=== PATIENT | female | born 1980 | race Asian ===

== ENCOUNTER 2019-06-06 10:44 | Emergency (ER) | payer BC, OTHER ==
[~2019-06-06] VITALS: Ht 154.9 cm; Wt 56.7 kg
[2019-06-06] MEDS ORDERED: DIPHENOXYLATE HCL/ATROP SULF TABLET PO ONE (11:00)
[2019-06-06 11:04] LABS: *BILIRUBIN,URIN NEGATIVE (NEGATIVE); *BLOOD, URINE 2+ (NEGATIVE); *CLARITY,URINE SLIGHTLY CLOUDY (CLEAR); *COLOR,URINE YELLOW (YELLOW); *KETONES,URINE NEGATIVE (NEGATIVE); *UROBILINOGEN,URINE 0.2 E.U./dl (NORMAL); LEUKOCYTE ESTERASE ,URINE NEGATIVE (NEGATIVE); NITRITE, URINE NEGATIVE (NEGATIVE); UGLUCOSE NEGATIVE (NEGATIVE)
[2019-06-06] MEDS ORDERED: DIPHENOXYLATE HCL/ATROP SULF TABLET ONE (11:06)
[2019-06-06 11:08] LABS: *URINE HCG, QUAL NEGATIVE (NEGATIVE)
[2019-06-06 11:16] LABS: BASOPHILS # (AUTO) 0.1 K/uL (0.0-8.0); BASOPHILS % (AUTO) 0.7 % (0.0-2.0); EOSINOPHILS # (AUTO) 0.2 K/uL (0.0-0.7); EOSINOPHILS % (AUTO) 2.7 % (0.0-7.0); HEMATOCRIT 42.6 % (31.2-41.9); HEMOGLOBIN 14.1 g/dL (10.9-14.3); LYMPHOCYTES # (AUTO) 1.7 K/uL (20.0-40.0); LYMPHOCYTES % (AUTO) 21.2 % (20.5-51.5); MEAN CORPUSCULAR HGB CONC 33 g/dL (32.3-35.6); MEAN CORPUSCULAR VOLUME 93.3 fL (75.5-95.3); MONOCYTES # (AUTO) 1.2 K/uL (2.0-10.0); MONOCYTES % (AUTO) 14.3 % (0.0-11.0); NEUTROPHILS % (AUTO) 61.1 % (38.5-71.5); PLATELET COUNT (AUTO) 307 K/uL (179-408); RED BLOOD CELL COUNT(AUTO) 4.56 MIL/uL (3.63-4.92); WHITE BLOOD COUNT (AUTO) 8.1 K/uL (3.8-11.8)
--- NOTE | 2019-06-06 11:17 | NUR ---
PO fluids provided. Patient prefers orange juice.
[2019-06-06 11:21] LABS: RBC,URINE 0-3 /HPF (0-3); WBC,URINE 0-3 /HPF (0-3)
[2019-06-06 11:22] LABS: BACTERIA,URINE FEW /HPF (NONE SEEN); MUCUS,URINE FEW /LPF (0-FEW); SQUAMOUS EPITHELIAL CELL,UR FEW /HPF (NONE SEEN)
[2019-06-06 11:25] LABS: CREATININE 0.7 mg/dL (0.6-1.3); POTASSIUM 3.4 mmol/L (3.5-5.1)
--- NOTE | 2019-06-06 12:03 | NUR ---
Patient discharged to home in stable conditon & brisk steady gait. Written and verbal after care instructions given to patient with LOMOTIL prescription & "Excuse from Work form." Patient verbalizes understanding of instructions.
== END 2019-06-06 12:07 | disposition home or self-care (01) ==
LOC: ER 10:44
DX: R19.7 Diarrhea, unspecified (principal); R10.9 Unspecified abdominal pain
CPT/HCPCS: 36415; 84703; 85025; A4663

== ENCOUNTER 2019-08-12 19:32 | Emergency (ER) | payer BC, OTHER ==
[~2019-08-12] VITALS: Ht 154.9 cm; Wt 56.7 kg
[2019-08-12] MEDS ORDERED: DM/P295L17 PO (19:40)
[2019-08-12] MEDS ORDERED: AZITHROMYCIN 250 MG TABLET ONE (20:06)
--- NOTE | 2019-08-12 20:13 | NUR ---
Patient discharged to home in stable conditon. Written and verbal after care instructions given. Patient verbalizes understanding of instructions. Walked out of Er with no distress noted.
[2019-08-12] MEDS ORDERED: AZITHROMYCIN 250 MG TABLET PO ONE (20:15)
== END 2019-08-12 20:14 | disposition home or self-care (01) ==
LOC: ER 19:33
DX: J06.9 Acute upper respiratory infection, unspecified (principal); Z79.899 Other long term (current) drug therapy
CPT/HCPCS: A4663; Q0144

== ENCOUNTER 2019-12-29 09:40 | Emergency (ER) | payer BC, OTHER ==
[~2019-12-29] VITALS: Ht 154.9 cm; Wt 60.8 kg
[~2019-12-29 09:40] MED LIST: DM/P295L17 PO
--- NOTE | 2019-12-29 09:52 | NUR ---
ERMD AT BEDSIDE FOR HX AND PHYSICAL
[2019-12-29 10:01] VITALS: BP 129/76
--- NOTE | 2019-12-29 10:01 | NUR ---
PT WAS D/C'd TO HOME. D/C INSTRUCTIONS GIVEN TO THE PT BY DR LOCK.
== END 2019-12-29 10:06 | disposition home or self-care (01) ==
LOC: ER 09:40
DX: Z03.818 Encounter for observation for suspected exposure to other biological agents ruled out (principal)
CPT/HCPCS: A4663

== ENCOUNTER 2020-08-08 15:29 | Emergency (ER) | payer BC, OTHER ==
[~2020-08-08] VITALS: Ht 154.9 cm; Wt 60.8 kg
== END 2020-08-08 16:11 | disposition left against medical advice (07) ==
LOC: ER 15:29
DX: Z75.3 Unavailability and inaccessibility of health-care facilities (principal)

== ENCOUNTER 2020-08-30 09:35 | Emergency (ER) | payer BC, OTHER ==
[~2020-08-30] VITALS: Ht 154.9 cm; Wt 58.1 kg
[2020-08-30 10:35] VITALS: BP 138/74
== END 2020-08-30 10:37 | disposition home or self-care (01) ==
LOC: ER 09:35
DX: U07.1 COVID-19 (principal); M54.5 Low back pain
CPT/HCPCS: A4663

== ENCOUNTER 2020-11-29 09:46 | Outpatient (CLI) | payer BC, OTHER ==
[2020-11-29 17:17] LABS: BASOPHILS # (AUTO) 0.1 K/uL (0.0-8.0); EOSINOPHILS # (AUTO) 0.1 K/uL (0.0-0.7); EOSINOPHILS % (AUTO) 0.9 % (0.0-7.0); HEMATOCRIT 36.4 % (31.2-41.9); HEMOGLOBIN 12.2 g/dL (10.9-14.3); LYMPHOCYTES # (AUTO) 2.4 K/uL (20.0-40.0); LYMPHOCYTES % (AUTO) 34.2 % (20.5-51.5); MEAN CORPUSCULAR HEMOGLOBIN 30.9 uug (24.7-32.8); MEAN CORPUSCULAR HGB CONC 34 g/dL (32.3-35.6); MEAN CORPUSCULAR VOLUME 91.8 fL (75.5-95.3); MONOCYTES # (AUTO) 0.4 K/uL (2.0-10.0); NEUTROPHILS # (AUTO) 4.1 K/uL (1.8-8.9); NEUTROPHILS % (AUTO) 57.9 % (38.5-71.5); PLATELET COUNT (AUTO) 363 K/uL (179-408); RED BLOOD CELL COUNT(AUTO) 3.97 MIL/uL (3.63-4.92); WHITE BLOOD COUNT (AUTO) 7.1 K/uL (3.8-11.8)
[2020-11-29 17:37] LABS: THYROID STIMULATING HORMONE 1.29 mIU/mL (0.358-3.740)
[2020-11-29 17:56] LABS: BILIRUBIN,TOTAL 0.5 mg/dL (0.2-1.0); CREATININE 0.6 mg/dL (0.6-1.3); POTASSIUM 3.4 mmol/L (3.5-5.1); TOTAL PROTEIN, SERUM 7.6 g/dL (6.4-8.2)
== END 2020-11-29 23:59 | disposition home or self-care (01) ==
LOC: LAB 09:46
PROVIDERS: ATTEND Family Medicine
DX: E55.9 Vitamin D deficiency, unspecified (principal); R03.0 Elevated blood-pressure reading, without diagnosis of hypertension; R14.0 Abdominal distension (gaseous); Z00.01 Encounter for general adult medical examination with abnormal findings
CPT/HCPCS: 82306; 82746; 84443; 85025; 86592; 86677; 87806

== ENCOUNTER 2021-07-18 23:18 | Emergency (ER) | payer BC, OTHER ==
[~2021-07-18] VITALS: Ht 154.9 cm; Wt 59.9 kg
[2021-07-19 00:21] LABS: *BILIRUBIN,URIN NEGATIVE (NEGATIVE); *CLARITY,URINE CLEAR (CLEAR); *COLOR,URINE YELLOW (YELLOW); *KETONES,URINE NEGATIVE (NEGATIVE); *UROBILINOGEN,URINE 0.2 E.U./dl (NORMAL); LEUKOCYTE ESTERASE ,URINE NEGATIVE (NEGATIVE); NITRITE, URINE NEGATIVE (NEGATIVE); UGLUCOSE NEGATIVE (NEGATIVE)
[2021-07-19 00:23] LABS: *BLOOD, URINE TRACE (NEGATIVE)
[2021-07-19 00:35] LABS: BACTERIA,URINE NONE SEEN /HPF (NONE SEEN); SQUAMOUS EPITHELIAL CELL,UR FEW /HPF (NONE SEEN)
[2021-07-19 00:36] LABS: *URINE HCG, QUAL NEGATIVE (NEGATIVE)
[2021-07-19] MEDS ORDERED: ONDA4TAB5 PO (00:51)
[2021-07-19] MEDS ORDERED: HYDR-4209 PO (00:51)
[2021-07-19 01:02] VITALS: BP 155/100
--- NOTE | 2021-07-19 01:02 | NUR ---
Patient discharged to home in stable condition. Written and verbal after care instructions given. Patient verbalizes understanding of instructions. Stressed follow up or return to ER for worsening s/s.
== END 2021-07-19 01:03 | disposition home or self-care (01) ==
LOC: ER 23:19
DX: R10.9 Unspecified abdominal pain (principal); R03.0 Elevated blood-pressure reading, without diagnosis of hypertension
CPT/HCPCS: 84703; 87086; A4663

== ENCOUNTER → 2021-07-19 | Outpatient (CLI) | payer BC, OTHER ==
[~2021-07-19] MED LIST changes: +HYDR-4209 PO; +ONDA4TAB5 PO
[2021-07-19 11:34] LABS: HEMATOCRIT 38.7 % (31.2-41.9); MEAN CORPUSCULAR HEMOGLOBIN 30.8 uug (24.7-32.8); MEAN CORPUSCULAR VOLUME 89.8 fL (75.5-95.3); PLATELET COUNT (AUTO) 376 K/uL (179-408)
[2021-07-19 11:40] LABS: BILIRUBIN,TOTAL 0.4 mg/dL (0.2-1.0); CREATININE 0.7 mg/dL (0.6-1.3); POTASSIUM 4.7 mmol/L (3.5-5.1)
[2021-07-19 12:14] LABS: *BILIRUBIN,URIN NEGATIVE (NEGATIVE); *BLOOD, URINE NEGATIVE (NEGATIVE); *CLARITY,URINE CLEAR (CLEAR); *COLOR,URINE YELLOW (YELLOW); *KETONES,URINE NEGATIVE (NEGATIVE); *UROBILINOGEN,URINE 0.2 E.U./dl (NORMAL); LEUKOCYTE ESTERASE ,URINE NEGATIVE (NEGATIVE); NITRITE, URINE NEGATIVE (NEGATIVE); PH,URINE 7.5 (5.0-8.0); UGLUCOSE NEGATIVE (NEGATIVE)
== END | disposition home or self-care (01) ==
LOC: LAB 11:00
PROVIDERS: ATTEND Family Medicine
DX: R10.9 Unspecified abdominal pain (principal)
CPT/HCPCS: 36415; 76770; 83690; 85025; 87086

== ENCOUNTER 2022-08-02 19:21 | Emergency (ER) | payer BC, OTHER ==
[~2022-08-02] VITALS: Ht 154.9 cm; Wt 61.7 kg
--- NOTE | 2022-08-02 19:50 | NUR ---
Seen and examined by Dr. Belle
--- NOTE | 2022-08-02 20:00 | NUR ---
Collected flu and pcr test. sent to lab
[2022-08-02] MEDS ORDERED: CODE473L6 PO (20:12)
[2022-08-02 20:22] VITALS: BP 122/80
== END 2022-08-02 20:23 | disposition home or self-care (01) ==
LOC: ER 19:31
DX: J20.8 Acute bronchitis due to other specified organisms (principal); Z20.822 Contact with and (suspected) exposure to COVID-19
CPT/HCPCS: 87400; A4663

== ENCOUNTER 2022-09-21 22:24 | Emergency (ER) | payer BC, OTHER ==
[~2022-09-21] VITALS: Ht 154.9 cm; Wt 59.0 kg
[~2022-09-21 22:24] MED LIST changes: +CODE473L6 PO
[2022-09-21] MEDS ORDERED: ASPIRIN 325 MG TABLET PO ONE (22:45)
[2022-09-21] MEDS ORDERED: ASPIRIN 325 MG TABLET ONE (22:53)
[2022-09-21 23:11] LABS: HEMATOCRIT 39.6 % (31.2-41.9); MEAN CORPUSCULAR HEMOGLOBIN 29.7 uug (24.7-32.8); MEAN CORPUSCULAR VOLUME 91.4 fL (75.5-95.3); PLATELET COUNT (AUTO) 417 K/uL (179-408)
[2022-09-21 23:19] LABS: CARBON DIOXIDE 28 mmol/L (21-32); CHLORIDE 103 mmol/L (98-107); CREATININE 0.6 mg/dL (0.6-1.3); GLUCOSE 101 mg/dL (74-106); POTASSIUM 3.9 mmol/L (3.5-5.1); UREA NITROGEN, BLOOD 12 mg/dL (7-18)
[2022-09-21 23:31] LABS: ALANINE AMINOTRANSFERASE 25 U/L (14-59); ALKALINE PHOSPHATASE 43 U/L (50-136); ASPARTATE AMINOTRANSFERASE 14 U/L (15-37); BILIRUBIN,DIRECT 0.1 mg/dL (0.0-0.2); BILIRUBIN,TOTAL 0.3 mg/dL (0.2-1.0)
--- NOTE | 2022-09-22 01:02 | NUR ---
Late entry: Patient arrived to room #4-a at 2300, assisted into gown and placed on monitor. Informed of plan of care, was seen by ER MD, bedside EKG was done for MD review. patient a/o x4, no s/s of any distress noted, no s/s of any edema. Will continue to monitor.
--- NOTE | 2022-09-22 02:58 | NUR ---
Patient given ACI, states understanding, remains stable for discharge home.
[2022-09-22 02:59] VITALS: BP 139/77
== END 2022-09-22 03:01 | disposition home or self-care (01) ==
LOC: ER 22:24
DX: R07.9 Chest pain, unspecified (principal); I10 Essential (primary) hypertension; Z82.49 Family history of ischemic heart disease and other diseases of the circulatory system
CPT/HCPCS: 36415; 71045; 84484; 85025; 93005; A4663

== ENCOUNTER 2022-09-27 16:52 | Outpatient (CLI) | payer BC, OTHER ==
[2022-09-27 17:59] LABS: *BILIRUBIN,URIN NEGATIVE (NEGATIVE); *CLARITY,URINE CLEAR (CLEAR); *COLOR,URINE LIGHT YELLOW (YELLOW); *KETONES,URINE NEGATIVE (NEGATIVE); *UROBILINOGEN,URINE 0.2 E.U./dl (NORMAL); LEUKOCYTE ESTERASE ,URINE NEGATIVE (NEGATIVE); NITRITE, URINE NEGATIVE (NEGATIVE); UGLUCOSE NEGATIVE (NEGATIVE)
[2022-09-27 18:00] LABS: *BLOOD, URINE TRACE (NEGATIVE)
[2022-09-27 18:17] LABS: BACTERIA,URINE NONE SEEN /HPF (NONE SEEN); RBC,URINE 0-3 /HPF (0-3); SQUAMOUS EPITHELIAL CELL,UR FEW /HPF (NONE SEEN); WBC,URINE NONE SEEN /HPF (0-3)
== END 2022-09-27 23:59 | disposition home or self-care (01) ==
LOC: RAD 16:52
PROVIDERS: ATTEND Family Medicine
DX: R51.9 Headache, unspecified (principal); R31.9 Hematuria, unspecified
CPT/HCPCS: 70450

== ENCOUNTER 2022-10-19 13:10 | Emergency (ER) | payer BC, OTHER ==
[~2022-10-19] VITALS: Ht 154.9 cm; Wt 59.0 kg
--- NOTE | 2022-10-19 13:22 | NUR ---
42 years old female presents to er c/o hypertension, no dizziness, no headache.
[2022-10-19] MEDS ORDERED: LOSA50TA39 PO (13:27)
[2022-10-19] MEDS ORDERED: LOSARTAN POTASSIUM 25 MG TABLET PO SCH (13:30)
[2022-10-19 14:23] LABS: HEMATOCRIT 38.1 % (31.2-41.9); MEAN CORPUSCULAR VOLUME 90.3 fL (75.5-95.3); PLATELET COUNT (AUTO) 402 K/uL (179-408)
[2022-10-19 14:41] LABS: CARBON DIOXIDE 30 mmol/L (21-32); CHLORIDE 102 mmol/L (98-107); CREATININE 0.5 mg/dL (0.6-1.3); GLUCOSE 99 mg/dL (74-106); UREA NITROGEN, BLOOD 10 mg/dL (7-18)
[2022-10-19 14:49] VITALS: BP 131/79
--- NOTE | 2022-10-19 14:50 | NUR ---
patient condition stable no cp, ambulatory with steady gait no dizziness d/c home after care reviewed understood.
== END 2022-10-19 14:51 | disposition home or self-care (01) ==
LOC: ER 13:10
DX: I10 Essential (primary) hypertension (principal); R07.9 Chest pain, unspecified
CPT/HCPCS: 36415; 71045; 84484; 85025; 93005; A4663

== ENCOUNTER 2023-01-10 19:11 | Inpatient (IN) | payer BC, OTHER ==
[~2023-01-10] VITALS: Ht 160 cm; Wt 62.6 kg
[~2023-01-10 19:11] MED LIST changes: +LOSA50TA39 PO
--- NOTE | 2023-01-10 19:40 | NUR ---
Received admission report from [facility] nurse.
--- NOTE | 2023-01-10 20:20 | NUR ---
Patient arrived in the unit from [facility], accompanied by 2 EMT's via gurney. Awake, alert and oriented x 4, slightly drowsy. Placed comfortably to bed with 5 people assist. at bedside. Both LE wrapped with surgical dressings dry and intact, elevated with pillows. Routine admission care done. Plan of care initiated. VS taken and recorded. Safety measures and fall prevention initiated.
[2023-01-10] MEDS ORDERED: AMLO-212 PO (21:17)
[2023-01-10] MEDS ORDERED: CHOL100062 PO (21:17)
[2023-01-10] MEDS ORDERED: ZINC220T3 PO (21:17)
[2023-01-10] MEDS ORDERED: HYDR-3980 PO (21:17)
[2023-01-10] MEDS ORDERED: BIOT1CAP3 PO (21:17)
[2023-01-10] MEDS ORDERED: ENOX40DI SQ (21:17)
[2023-01-10] MEDS ORDERED: BIOT1TAB PO (21:17)
[2023-01-10] MEDS ORDERED: NYQUIL D COLD PO SCH (21:45)
[2023-01-10] MEDS ORDERED: ONDANSETRON HCL 4 MG TABLET PO PRN (21:45)
[2023-01-10] MEDS ORDERED: [UNRECOGNIZED DRUG - OTHER] PO SCH (21:45)
[2023-01-10] MEDS: HYDROCODONE/APAP 10-325 MG TABLET PO PRN (22:40)
[2023-01-11] MEDS: HYDROCODONE/APAP 10-325 MG TABLET PO PRN (04:33)
[2023-01-11 05:12] VITALS: BP 119/79
[2023-01-11 07:58] VITALS: BP 126/93
[2023-01-11] MEDS ORDERED: NALOXONE HCL 0.4 MG/ML AMPUL IV PRN (08:45)
[2023-01-11] MEDS ORDERED: BIOTIN 1 MG PO SCH (09:00)
[2023-01-11] MEDS ORDERED: LOSARTAN POTASSIUM 50 MG TABLET PO SCH ×2 (09:00)
[2023-01-11] MEDS ORDERED: Medication Not On Formulary EA (Biotin 1 MG) PO SCH (09:00)
[2023-01-11] MEDS: ZINC SULFATE 220 MG CAPSULE PO SCH (09:02)
[2023-01-11] MEDS: AMLODIPINE 5 MG TABLET PO SCH ×2 (09:03→20:55)
[2023-01-11] MEDS: ENOXAPARIN SODIUM 40 MG/0.4 ML DISP.SYRIN SQ SCH (09:04)
[2023-01-11] MEDS: REMEDY ESSENTIAL ZINC PASTE 113 GM TOP SCH ×2 (09:04→20:23)
[2023-01-11] MEDS: OXYCODONE HCL 10 MG TAB.SR.12H PO SCH ×2 (09:08→17:37)
[2023-01-11] MEDS ORDERED: HYDROCODONE/APAP 10-325 MG TABLET PO PRN (13:30)
[2023-01-11 16:00] VITALS: BP 124/83
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
[2023-01-11 20:00] VITALS: BP 120/77
[2023-01-12] MEDS: OXYCODONE HCL 10 MG TAB.SR.12H PO SCH ×4 (00:38→21:49)
[2023-01-12 04:00] VITALS: BP 119/80
--- NOTE | 2023-01-12 07:00 | NUR ---
Patient is in bed, alert, oriented x4, no sob, respirations are even nonlabored, skin warm and dry to touch, no distress noted at this time. patient stated she has pain but can tolerate at this time. surgical dressing is intact to both legs, able to move her toes, capillary refill to toes is less than 3 second. patient refused to assess the pedal pulses. continue with plan of care.
[2023-01-12 08:06] VITALS: BP 122/86
--- NOTE | 2023-01-12 08:30 | NUR ---
all the scheduled medications are given, tolerated well.
[2023-01-12] MEDS: CHOLECALCIFEROL 1,000 UNIT TABLET PO SCH (08:33)
[2023-01-12] MEDS: ASCORBIC ACID 500 MG TABLET PO SCH (08:33)
[2023-01-12] MEDS: ZINC SULFATE 220 MG CAPSULE PO SCH (08:33)
[2023-01-12] MEDS: AMLODIPINE 5 MG TABLET PO SCH ×2 (08:33→22:42)
[2023-01-12] MEDS ORDERED: CHOLECALCIFEROL 400 UNITS TABLET PO SCH (09:00)
[2023-01-12] MEDS ORDERED: ZINC SULFATE 220 MG CAPSULE PO SCH (09:00)
[2023-01-12] MEDS: ENOXAPARIN SODIUM 40 MG/0.4 ML DISP.SYRIN SQ SCH (09:02)
[2023-01-12] MEDS: REMEDY ESSENTIAL ZINC PASTE 113 GM TOP SCH ×2 (09:02→22:42)
--- NOTE | 2023-01-12 10:15 | NUR ---
patient stated she would like to try to have BM, if not able to make BM, going to sleep. do not disturb me.
--- NOTE | 2023-01-12 11:20 | NUR ---
spoke to dr cuevas regarding oxycontin. per dr cuevas it is ok to given oxycontin with in six hours for one time so the schedule for oxycontine can be 0600, 1400, [address]. [address] cuevas it is ok to give norco in between.
--- NOTE | 2023-01-12 12:30 | NUR ---
patient is working with physical therapy, sitting at the edge of the bed, offered norco for breakthrough pain, patient refused to take it and stated she can tolerate the level of the pain at this time. no acute distress noted.
[2023-01-12] MEDS: DOCUSATE SODIUM 100 MG CAPSULE PO SCH ×2 (14:45→21:49)
[2023-01-12 16:00] VITALS: BP 117/82
[2023-01-12 21:00] VITALS: BP 127/94
--- NOTE | 2023-01-13 01:25 | NUR ---
patient changes and cleans herself, does not like to be cleansed by nurses.
[2023-01-13 04:50] VITALS: BP 113/78
[2023-01-13] MEDS: OXYCODONE HCL 10 MG TAB.SR.12H PO SCH ×3 (05:41→21:59)
--- NOTE | 2023-01-13 06:00 | NUR ---
0600 am oxycontin is administered
[2023-01-13 06:15] LABS: HEMATOCRIT 32.8 % (31.2-41.9); MEAN CORPUSCULAR HEMOGLOBIN 30.9 uug (24.7-32.8); MEAN CORPUSCULAR VOLUME 90.9 fL (75.5-95.3); PLATELET COUNT (AUTO) 646 K/uL (179-408)
[2023-01-13] MEDS: CHOLECALCIFEROL 1,000 UNIT TABLET PO SCH (07:05)
[2023-01-13] MEDS: DOCUSATE SODIUM 100 MG CAPSULE PO SCH ×2 (07:05→20:52)
[2023-01-13] MEDS: AMLODIPINE 5 MG TABLET PO SCH ×2 (07:06→20:52)
[2023-01-13] MEDS: ASCORBIC ACID 500 MG TABLET PO SCH (07:06)
[2023-01-13] MEDS: ZINC SULFATE 220 MG CAPSULE PO SCH (07:08)
[2023-01-13 07:11] VITALS: BP 130/66
--- NOTE | 2023-01-13 07:21 | NUR ---
patient requested her morning medications vitamins and amlodipine at 0700, okayed by .
[2023-01-13] MEDS: ENOXAPARIN SODIUM 40 MG/0.4 ML DISP.SYRIN SQ SCH (09:14)
[2023-01-13] MEDS: REMEDY ESSENTIAL ZINC PASTE 113 GM TOP SCH ×2 (09:15→20:55)
--- NOTE | 2023-01-13 10:30 | NUR ---
7:30, Pt received lying in bed, awake in no acute distress. She states pain is under control. Pt with Pure-Week device. Pt instructed to call if any help needed and to use call [facility]
--- NOTE | 2023-01-13 10:34 | NUR ---
9:00, Pt was lying in bed, awake, all meds given, no new requests
--- NOTE | 2023-01-13 15:30 | NUR ---
INDIVIDUALIZED PLAN OF CARE
[2023-01-13 15:52] VITALS: BP 123/80
--- NOTE | 2023-01-13 18:55 | NUR ---
18:45, Pt comfortable in bed denies pain. Family visited and were update with plan of care. Pt able to swallow without any difficult. All needs met during shift.
[2023-01-14 04:00] VITALS: BP 121/84
[2023-01-14] MEDS: OXYCODONE HCL 10 MG TAB.SR.12H PO SCH ×3 (06:00→22:01)
[2023-01-14 08:11] VITALS: BP 115/78
[2023-01-14] MEDS: ASCORBIC ACID 500 MG TABLET PO SCH (08:24)
[2023-01-14] MEDS: AMLODIPINE 5 MG TABLET PO SCH ×2 (08:24→20:49)
[2023-01-14] MEDS: DOCUSATE SODIUM 100 MG CAPSULE PO SCH ×2 (08:24→20:49)
[2023-01-14] MEDS: CHOLECALCIFEROL 1,000 UNIT TABLET PO SCH (08:24)
[2023-01-14] MEDS: ZINC SULFATE 220 MG CAPSULE PO SCH (08:25)
[2023-01-14] MEDS: REMEDY ESSENTIAL ZINC PASTE 113 GM TOP SCH ×2 (08:25→20:49)
[2023-01-14] MEDS: ENOXAPARIN SODIUM 40 MG/0.4 ML DISP.SYRIN SQ SCH (08:27)
--- NOTE | 2023-01-14 09:58 | NUR ---
0730-Rec'd patient in bed, awake, A/Ox4; verbalizes needs and follows directions, no respiratory distress/SOB, denies pain at this time, safety precaution reminders provided. RT LE with cast in place, patient able to wiggle right toes, denies any numbness/tingling sensation. LLE with brace in place, no skin impairment/circulation impairment noted. Encouraged patient to use the call light for help when needed with good understanding. Safety measures in place. 0900-Scheduled medications administered, no ASE, oral fluids taken well. Patient continues on Lovenox for prevention of blood clots/DVT, no unusual skin discoloration/bleeding noted/observed; safety precautions followed, handled gently and carefully during care. Call light within reach.
[2023-01-14 15:13] VITALS: BP 128/63
--- NOTE | 2023-01-14 18:08 | NUR ---
Per patient's request and per COUNTERINTELLIGENCE AGENT Andrés Hendricks covering for the shift, ok to DC ML to ARNEL., ML dc'd, direct pressure to puncture site applied, no s/s of bleeding, band-aid applied. Patient mike. well proc. denies pain. Per case checker, patient has an apt ortho F/U on thursday 01/18 @ 1:45pm. Patient is aware.
[2023-01-14] MEDS ORDERED: METHYL SALICYLATE/MENTHOL CREAM 28 GM TUBE TOP PRN (19:00)
[2023-01-14 20:52] VITALS: BP 121/89
[2023-01-15] MEDS: OXYCODONE HCL 10 MG TAB.SR.12H PO SCH ×3 (05:20→22:04)
[2023-01-15 05:26] VITALS: BP 112/79
--- NOTE | 2023-01-15 06:08 | NUR ---
Slept fairly. she tried to avoid asking for assistance/help. Routine pain medications with help. VS stable. Kept BLE elevated at all times.
[2023-01-15 08:00] VITALS: BP 122/73
[2023-01-15] MEDS: ASCORBIC ACID 500 MG TABLET PO SCH (08:00)
[2023-01-15] MEDS: CHOLECALCIFEROL 1,000 UNIT TABLET PO SCH (08:00)
[2023-01-15] MEDS: AMLODIPINE 5 MG TABLET PO SCH ×2 (08:00→20:53)
[2023-01-15] MEDS: REMEDY ESSENTIAL ZINC PASTE 113 GM TOP SCH ×2 (08:00→20:53)
[2023-01-15] MEDS: DOCUSATE SODIUM 100 MG CAPSULE PO SCH ×2 (08:00→20:50)
[2023-01-15] MEDS: ZINC SULFATE 220 MG CAPSULE PO SCH (08:00)
[2023-01-15] MEDS: ENOXAPARIN SODIUM 40 MG/0.4 ML DISP.SYRIN SQ SCH (08:01)
--- NOTE | 2023-01-15 10:43 | NUR ---
spoke to patient instrument technician apprentice, dr Velasco for follow up, per he is going to call us back and let us know the plan.
--- NOTE | 2023-01-15 10:46 | NUR ---
patient is alert, oriented x4, no sob, respirations are even nonlabored, skin warm and dry to touch, dressing to right lower leg is intact, patient is able to move her toes, capillary refill is less than 3 seconds. pain is well managed with scheduled pain medication, offered breakthrough medication, patient stated she is fine, does not need any breakthrough medications for pain at this time. continue on anticoagulant, no active bleeding noted. surgical dressing is intact, dry and clean.
[2023-01-15 15:13] VITALS: BP 122/83
--- NOTE | 2023-01-15 18:30 | NUR ---
patient is alert, oriented x4, encouraged to use spirometer every hour. reinforced teaching and benefits of using incentive spirometer, patient verbalized understanding of it, patient' son visited patient today. sometimes noted with sad facial expression, encouraged patient to verbalize feelings. patient stated she is fine, denied any depressed mood, denied suicidal thoughts. patient was up in wheel chair with PT, and OT, tolerated well. patient likes to be her door close all the time, and likes to change herself. does not want nurses to change her or clean her. education about good skin care. verbalized understanding of it. continue with plan of care.
[2023-01-15 20:00] VITALS: BP 128/88
[2023-01-16 05:35] VITALS: BP 108/75
[2023-01-16] MEDS: OXYCODONE HCL 10 MG TAB.SR.12H PO SCH ×3 (05:40→21:42)
[2023-01-16 07:56] VITALS: BP 128/91
[2023-01-16] MEDS: CHOLECALCIFEROL 1,000 UNIT TABLET PO SCH (08:38)
[2023-01-16] MEDS: DOCUSATE SODIUM 100 MG CAPSULE PO SCH ×2 (08:38→20:41)
[2023-01-16] MEDS: ASCORBIC ACID 500 MG TABLET PO SCH (08:39)
[2023-01-16] MEDS: ZINC SULFATE 220 MG CAPSULE PO SCH (08:39)
[2023-01-16] MEDS: AMLODIPINE 5 MG TABLET PO SCH ×2 (08:39→20:42)
[2023-01-16] MEDS: REMEDY ESSENTIAL ZINC PASTE 113 GM TOP SCH ×2 (08:41→20:42)
[2023-01-16] MEDS: ENOXAPARIN SODIUM 40 MG/0.4 ML DISP.SYRIN SQ SCH (08:41)
--- NOTE | 2023-01-16 14:39 | NUR ---
INTERDISCIPLINARY TEAM CONFERENCE
[2023-01-16 19:58] VITALS: BP 120/79
[2023-01-17] MEDS: OXYCODONE HCL 10 MG TAB.SR.12H PO SCH ×3 (05:34→21:26)
[2023-01-17 07:17] LABS: HEMATOCRIT 34.4 % (31.2-41.9); MEAN CORPUSCULAR HEMOGLOBIN 30.3 uug (24.7-32.8); PLATELET COUNT (AUTO) 677 K/uL (179-408)
[2023-01-17 07:42] LABS: THYROID STIMULATING HORMONE 1.723 mIU/mL (0.358-3.740)
[2023-01-17 08:23] LABS: ALANINE AMINOTRANSFERASE 41 U/L (14-59); ALKALINE PHOSPHATASE 230 U/L (50-136); ASPARTATE AMINOTRANSFERASE 18 U/L (15-37); BILIRUBIN,TOTAL 0.5 mg/dL (0.2-1.0); CARBON DIOXIDE 27 mmol/L (21-32); CHLORIDE 105 mmol/L (98-107); CHOLESTEROL 195 mg/dL (<200); CREATININE 0.5 mg/dL (0.6-1.3); GLUCOSE 104 mg/dL (74-106); HDL CHOLESTEROL 43 mg/dL (40-60); MAGNESIUM 2.2 mg/dL (1.8-2.4); PHOSPHOROUS 4.5 mg/dL (2.5-4.9); TOTAL PROTEIN, SERUM 6.9 g/dL (6.4-8.2); TRIGLYCERIDES 83 MG/DL (30-150); UREA NITROGEN, BLOOD 13 mg/dL (7-18)
[2023-01-17] MEDS: ENOXAPARIN SODIUM 40 MG/0.4 ML DISP.SYRIN SQ SCH (08:44)
[2023-01-17] MEDS: CHOLECALCIFEROL 1,000 UNIT TABLET PO SCH (08:44)
[2023-01-17] MEDS: ASCORBIC ACID 500 MG TABLET PO SCH (08:44)
[2023-01-17] MEDS: ZINC SULFATE 220 MG CAPSULE PO SCH (08:49)
[2023-01-17] MEDS: AMLODIPINE 5 MG TABLET PO SCH ×2 (08:49→20:33)
[2023-01-17] MEDS: REMEDY ESSENTIAL ZINC PASTE 113 GM TOP SCH ×2 (08:50→20:33)
[2023-01-17] MEDS: DOCUSATE SODIUM 100 MG CAPSULE PO SCH ×2 (08:50→20:32)
--- NOTE | 2023-01-17 19:31 | NUR ---
Patient A/Ox4, verbally communicative, follows directions. OOB during shift with rehab for PT/OT skilled services. On routine pain medication for pain management and effective. Assisted patient with ADLs through out the shift. Care provided at routine intervals and as needed. RT LE with cast in place, left LE with brace in place, no skin impairment/circulation issues noted, patient denies pain, numbness, tingling in affected extremities. Continues on Lovenox inj for DVT prevention. No unusual bleeding noted; Safety precautions observed. Routine rounds and frequent visual checks done. All needs attended well and met.
[2023-01-17 20:00] VITALS: BP 125/77
[2023-01-18 04:00] VITALS: BP 121/77
[2023-01-18] MEDS: OXYCODONE HCL 10 MG TAB.SR.12H PO SCH ×3 (05:58→22:27)
--- NOTE | 2023-01-18 06:44 | NUR ---
No significant event reported all night. All needs attended and met. Continue current rehab plan of care.
[2023-01-18 07:47] VITALS: BP 125/88
[2023-01-18] MEDS: AMLODIPINE 5 MG TABLET PO SCH ×2 (08:23→20:32)
[2023-01-18] MEDS: DOCUSATE SODIUM 100 MG CAPSULE PO SCH ×2 (08:23→20:27)
[2023-01-18] MEDS: CHOLECALCIFEROL 1,000 UNIT TABLET PO SCH (08:23)
[2023-01-18] MEDS: ASCORBIC ACID 500 MG TABLET PO SCH (08:23)
[2023-01-18] MEDS: ZINC SULFATE 220 MG CAPSULE PO SCH (08:23)
[2023-01-18] MEDS: ENOXAPARIN SODIUM 40 MG/0.4 ML DISP.SYRIN SQ SCH (08:24)
[2023-01-18] MEDS: REMEDY ESSENTIAL ZINC PASTE 113 GM TOP SCH ×2 (08:24→20:32)
--- NOTE | 2023-01-18 12:35 | NUR ---
pt went for dr appointment via ambulances in stable condition
--- NOTE | 2023-01-18 15:51 | NUR ---
pt came back via ambulances after the dr appointment ,new orders received noted and carried out
[2023-01-18 21:00] VITALS: BP 133/96
[2023-01-19] MEDS: OXYCODONE HCL 10 MG TAB.SR.12H PO SCH ×3 (05:46→21:34)
--- NOTE | 2023-01-19 06:20 | NUR ---
Uneventful night. Slept good after taking pain medication. No further complaint of pain/discomforts presented. All needs attended and met. Vs stable. Continue current rehab plan of care.
--- NOTE | 2023-01-19 07:00 | NUR ---
patient in her room, lying in bed asleep at this time with no S/S of discomforts noted,family at bed side sleeping , fall and safety precautions implemented. will continue to monitor. call light with in reach
[2023-01-19 07:12] VITALS: BP 112/72
[2023-01-19] MEDS: ASCORBIC ACID 500 MG TABLET PO SCH (08:24)
[2023-01-19] MEDS: ZINC SULFATE 220 MG CAPSULE PO SCH (08:24)
[2023-01-19] MEDS: CHOLECALCIFEROL 1,000 UNIT TABLET PO SCH (08:24)
[2023-01-19] MEDS: DOCUSATE SODIUM 100 MG CAPSULE PO SCH ×2 (08:24→20:03)
[2023-01-19] MEDS: AMLODIPINE 5 MG TABLET PO SCH ×2 (08:24→20:05)
[2023-01-19] MEDS: REMEDY ESSENTIAL ZINC PASTE 113 GM TOP SCH ×2 (08:25→20:05)
[2023-01-19] MEDS: ENOXAPARIN SODIUM 40 MG/0.4 ML DISP.SYRIN SQ SCH (08:25)
--- NOTE | 2023-01-19 09:00 | NUR ---
seen by pt ot pt stud next to the bed tolerated well
[2023-01-19 15:04] VITALS: BP 111/73
--- NOTE | 2023-01-19 15:43 | NUR ---
resting in her bed family at bed side
--- NOTE | 2023-01-19 16:06 | NUR ---
spoke to patient coin collector, dr Velasco for the orders from orthopedic from [facility] Dr Reyes, per dr reyes patient can put weight as tolerated on her left leg while wearing the boot on left foot. coin collector dr velasco agreed with plan of care.
[2023-01-19] MEDS: ATORVASTATIN 10 MG TABLET PO SCH (20:09)
[2023-01-19 20:26] VITALS: BP 142/91
[2023-01-20 05:25] VITALS: BP 112/70
[2023-01-20] MEDS: OXYCODONE HCL 10 MG TAB.SR.12H PO SCH ×3 (05:42→22:00)
--- NOTE | 2023-01-20 07:00 | NUR ---
received in her bed sleeping ,no c/o pain noted ,call light with in reach ,family in the room sleeping
[2023-01-20] MEDS: CHOLECALCIFEROL 1,000 UNIT TABLET PO SCH (08:16)
[2023-01-20] MEDS: ASCORBIC ACID 500 MG TABLET PO SCH (08:16)
[2023-01-20] MEDS: ZINC SULFATE 220 MG CAPSULE PO SCH (08:16)
[2023-01-20] MEDS: DOCUSATE SODIUM 100 MG CAPSULE PO SCH ×2 (08:16→19:57)
[2023-01-20] MEDS: ENOXAPARIN SODIUM 40 MG/0.4 ML DISP.SYRIN SQ SCH (08:17)
[2023-01-20] MEDS: AMLODIPINE 5 MG TABLET PO SCH ×2 (08:19→19:57)
[2023-01-20] MEDS: REMEDY ESSENTIAL ZINC PASTE 113 GM TOP SCH (08:19)
[2023-01-20 08:37] VITALS: BP 116/74
[2023-01-20 16:05] VITALS: BP 123/74
[2023-01-20] MEDS ORDERED: diphenhydrAMINE 25 MG CAP PO PRN (19:45)
--- NOTE | 2023-01-20 19:45 | NUR ---
Patient sitting at the edge of bed when received, depressed, crying and asking why it happened to her, she did not harm anybody, why her? She said her mom was here earlier, crying of her condition, that made her more guilty and 'I want to end this...." I told her to be always positive, she's a strong willed person, having a lot of friends that love and care for her. Will continue to monitor her. Family at bedside.
[2023-01-20] MEDS: ATORVASTATIN 10 MG TABLET PO SCH (19:55)
[2023-01-20 20:35] VITALS: BP 126/80
--- NOTE | 2023-01-20 20:55 | NUR ---
Up in a wheelchair wheeled by a family back and forth in the hallway.
[2023-01-21 04:55] VITALS: BP 114/70
[2023-01-21] MEDS: OXYCODONE HCL 10 MG TAB.SR.12H PO SCH ×3 (05:54→21:46)
--- NOTE | 2023-01-21 06:16 | NUR ---
Slept fairly, all needs attended and met. Routine pain meds given as ordered with help. All needs attended and met. Family member remain at bedside. Continue care as planned.
[2023-01-21 08:00] VITALS: BP 120/78
[2023-01-21] MEDS: DOCUSATE SODIUM 100 MG CAPSULE PO SCH ×2 (09:18→20:54)
[2023-01-21] MEDS: AMLODIPINE 5 MG TABLET PO SCH ×2 (09:19→20:54)
[2023-01-21] MEDS: ZINC SULFATE 220 MG CAPSULE PO SCH (09:19)
[2023-01-21] MEDS: ASCORBIC ACID 500 MG TABLET PO SCH (09:19)
[2023-01-21] MEDS: CHOLECALCIFEROL 1,000 UNIT TABLET PO SCH (09:19)
[2023-01-21] MEDS: ENOXAPARIN SODIUM 40 MG/0.4 ML DISP.SYRIN SQ SCH (09:20)
[2023-01-21] MEDS: HYDROXYZINE PAMOATE 25 MG CAPSULE PO PRN (12:48)
[2023-01-21 15:35] VITALS: BP 136/85
[2023-01-21 20:37] VITALS: BP 116/74
[2023-01-21] MEDS: ATORVASTATIN 10 MG TABLET PO SCH (20:54)
[2023-01-22 04:55] VITALS: BP 106/70
[2023-01-22] MEDS: OXYCODONE HCL 10 MG TAB.SR.12H PO SCH ×3 (05:56→21:01)
--- NOTE | 2023-01-22 06:31 | NUR ---
Been quiet, less conversant today. Pain lesser, tolerable per patient. No complaint of itchiness this time. Continue care as planned. Vs stable.
[2023-01-22 07:44] VITALS: BP 115/86
--- NOTE | 2023-01-22 08:00 | NUR ---
Sleeping, appears comfortable
[2023-01-22] MEDS: DOCUSATE SODIUM 100 MG CAPSULE PO SCH ×2 (09:58→20:13)
[2023-01-22] MEDS: AMLODIPINE 5 MG TABLET PO SCH ×2 (09:58→20:14)
[2023-01-22] MEDS: CHOLECALCIFEROL 1,000 UNIT TABLET PO SCH (09:59)
[2023-01-22] MEDS: ZINC SULFATE 220 MG CAPSULE PO SCH (09:59)
[2023-01-22] MEDS: ASCORBIC ACID 500 MG TABLET PO SCH (09:59)
[2023-01-22] MEDS: ENOXAPARIN SODIUM 40 MG/0.4 ML DISP.SYRIN SQ SCH (10:10)
--- NOTE | 2023-01-22 12:00 | NUR ---
Assisted out of bed with PT with FWW ambulating outside of the room Addendum: 01/22/23 at 1522 by LINDSEY YOUNG RN notes not for this patient
--- NOTE | 2023-01-22 14:00 | NUR ---
Back from therapy on the wheelchair, anxious and crying, reassurance given, acknowledge feelings, redirected.
[2023-01-22 16:16] VITALS: BP 134/89
--- NOTE | 2023-01-22 18:02 | NUR ---
Ortho consult for Dr. Beltran called for left elbow radial neck non displaced fracture, to see the patient.
--- NOTE | 2023-01-22 19:00 | NUR ---
received in bed awake watching tv no c/o pain noted call light with in reach
[2023-01-22] MEDS: HYDROXYZINE PAMOATE 25 MG CAPSULE PO PRN (19:35)
[2023-01-22 20:00] VITALS: BP 130/84
[2023-01-22] MEDS: ATORVASTATIN 10 MG TABLET PO SCH (20:14)
--- NOTE | 2023-01-23 01:52 | NUR ---
Sleeping, appears comfortable family at bed side
[2023-01-23] MEDS: OXYCODONE HCL 10 MG TAB.SR.12H PO SCH ×3 (05:00→21:00)
[2023-01-23 05:48] VITALS: BP 106/65
--- NOTE | 2023-01-23 06:26 | NUR ---
No significant event reported all night. All needs attended and met. Continue current rehab plan of care.
[2023-01-23 08:00] VITALS: BP 121/76
[2023-01-23] MEDS: DOCUSATE SODIUM 100 MG CAPSULE PO SCH ×2 (09:40→20:04)
[2023-01-23] MEDS: CHOLECALCIFEROL 1,000 UNIT TABLET PO SCH (09:41)
[2023-01-23] MEDS: ASCORBIC ACID 500 MG TABLET PO SCH (09:41)
[2023-01-23] MEDS: AMLODIPINE 5 MG TABLET PO SCH ×2 (09:42→20:04)
[2023-01-23] MEDS: ZINC SULFATE 220 MG CAPSULE PO SCH (09:42)
[2023-01-23] MEDS: ENOXAPARIN SODIUM 40 MG/0.4 ML DISP.SYRIN SQ SCH (09:43)
--- NOTE | 2023-01-23 11:28 | NUR ---
INTERDISCIPLINARY TEAM CONFERENCE
[2023-01-23 16:00] VITALS: BP 124/84
--- NOTE | 2023-01-23 19:00 | NUR ---
Patient is in bed,awake alert, oriented x4, no sob, no distress noted at this time. patient stated she has pain but can tolerate at this time. surgical dressing is intact to both legs, able to move her toes, capillary refill to toes is less than 3 second. continue with plan of care.family at bed side
[2023-01-23 19:42] VITALS: BP 124/85
--- NOTE | 2023-01-23 19:46 | NUR ---
RECEIVED REPORT FROM [facility] SHIFT INTERNAL MEDICINE PHYSICIAN ASSISTANT. PATIENT IS ALERT AND ORIENTED X4 AND SPEAKS ESTONIAN. VITAL SIGNS STABLE. PATIENT TOLERATES PO MEDICATIONS AND DIET WELL. PATIENT HAD COMPLAINT OF PAIN. RN GAVE MEDICATIONS ORDERED. PATIENT EXPRESSES RELIEF. PATIENT PARTICIPATES WITH PHYSICAL AND OCCUPATIONAL THERAPY SCHEDULED. DR. LAYTON VISITED PATIENT. RN NOTED. DR. SEWELL VISITED. RN NOTED. PER DR. LAZCANO, RN ASKED IF PATIENT WANTED PSYCH CONSULT. PATIENT REFUSED. RN NOTIFIES MD. NO ADDITIONAL ORDERS AT THIS TIME. PATIENT'S FAMILY VISITED. NO ACUTE DISTRESS NOTED. CALL LIGHT WITHIN REACH. FALL PRECAUTIONS OBSERVED. RN ENDORSED CARE TO [facility] SHIFT RN FOR CONTINUATION OF CARE.
[2023-01-23] MEDS: ATORVASTATIN 10 MG TABLET PO SCH (20:04)
[2023-01-23] MEDS: HYDROXYZINE PAMOATE 25 MG CAPSULE PO PRN (21:41)
--- NOTE | 2023-01-23 23:47 | NUR ---
resting in her bed family at bed side
[2023-01-24] MEDS: OXYCODONE HCL 10 MG TAB.SR.12H PO SCH ×3 (05:02→21:17)
[2023-01-24 05:11] VITALS: BP 113/73
--- NOTE | 2023-01-24 06:15 | NUR ---
No significant event reported all night. All needs attended and met. Continue current rehab plan of care.
[2023-01-24 08:00] VITALS: BP 121/77
[2023-01-24] MEDS: ZINC SULFATE 220 MG CAPSULE PO SCH (09:28)
[2023-01-24] MEDS: DOCUSATE SODIUM 100 MG CAPSULE PO SCH ×2 (09:28→20:02)
[2023-01-24] MEDS: CHOLECALCIFEROL 1,000 UNIT TABLET PO SCH (09:28)
[2023-01-24] MEDS: ASCORBIC ACID 500 MG TABLET PO SCH (09:28)
[2023-01-24] MEDS: AMLODIPINE 5 MG TABLET PO SCH ×2 (09:28→20:02)
[2023-01-24] MEDS: ENOXAPARIN SODIUM 40 MG/0.4 ML DISP.SYRIN SQ SCH (09:30)
--- NOTE | 2023-01-24 14:22 | NUR ---
Pt c/o Left sided rib pain. Palpated and visualized by RN and PT. Compared to right side, slight 1/2" lateral swelling noted. Provided pt with ice. Discussed recent chest xray results. Will continue to monitor.
[2023-01-24 16:00] VITALS: BP 110/81
--- NOTE | 2023-01-24 19:00 | NUR ---
received in bed awake watching tv no c/o pain noted call light with in reach
[2023-01-24 20:00] VITALS: BP 116/77
[2023-01-24] MEDS: ATORVASTATIN 10 MG TABLET PO SCH (20:02)
--- NOTE | 2023-01-25 00:01 | NUR ---
Sleeping, appears comfortable
[2023-01-25] MEDS: OXYCODONE HCL 10 MG TAB.SR.12H PO SCH ×3 (05:02→21:09)
[2023-01-25 05:41] VITALS: BP 113/74
[2023-01-25] MEDS: ZINC SULFATE 220 MG CAPSULE PO SCH (09:51)
[2023-01-25] MEDS: CHOLECALCIFEROL 1,000 UNIT TABLET PO SCH (09:51)
[2023-01-25] MEDS: DOCUSATE SODIUM 100 MG CAPSULE PO SCH ×2 (09:52→21:07)
[2023-01-25] MEDS: ASCORBIC ACID 500 MG TABLET PO SCH (09:52)
[2023-01-25] MEDS: ENOXAPARIN SODIUM 40 MG/0.4 ML DISP.SYRIN SQ SCH (09:53)
[2023-01-25] MEDS: AMLODIPINE 5 MG TABLET PO SCH ×2 (10:24→21:08)
--- NOTE | 2023-01-25 10:25 | NUR ---
Pt c/o pain in Right Knee and Leg that reaches 10/10 at times, yesterday and this morning. Offered Tylenol, Pt does not want any Tylenol or additional pain meds. Pt stated, "I just want to let you guys know."
--- NOTE | 2023-01-25 12:02 | NUR ---
Gave pt hot packs for her Right Leg pain, placed on her knee. Educated about putting a wash cloth or towel between her skin and the pack to avoid burning. Pt verbalized understanding.
[2023-01-25] MEDS: LIDOCAINE 5% PATCH TD SCH (14:50)
[2023-01-25 15:52] VITALS: BP 118/76
[2023-01-25 20:37] VITALS: BP 116/79
[2023-01-25] MEDS: ATORVASTATIN 10 MG TABLET PO SCH (21:07)
[2023-01-25] MEDS: HYDROXYZINE PAMOATE 25 MG CAPSULE PO PRN (23:15)
--- NOTE | 2023-01-26 03:18 | NUR ---
AAOx4 In good spirits upon received. Conversant. No distress noted. VSS Tolerated all po meds. Pain meds given as scheduled. Will monitor patient. All needs attended. Purewick to suction with yellow urine noted. Fall precautions maintained. Siderails up for safety. RLE with ambrocio wrap and splint dressing intact. LLE with short leg cast intact, good circulation, toes warm to touch, able to wiggle toes without difficulty.
[2023-01-26 04:55] VITALS: BP 116/72
[2023-01-26] MEDS: OXYCODONE HCL 10 MG TAB.SR.12H PO SCH ×3 (05:47→21:56)
[2023-01-26 08:20] VITALS: BP 118/76
[2023-01-26] MEDS: CHOLECALCIFEROL 1,000 UNIT TABLET PO SCH (09:30)
[2023-01-26] MEDS: LIDOCAINE 5% PATCH TD SCH (09:30)
[2023-01-26] MEDS: ASCORBIC ACID 500 MG TABLET PO SCH (09:30)
[2023-01-26] MEDS: DOCUSATE SODIUM 100 MG CAPSULE PO SCH ×2 (09:30→20:52)
[2023-01-26] MEDS: AMLODIPINE 5 MG TABLET PO SCH ×2 (09:30→20:53)
[2023-01-26] MEDS: ZINC SULFATE 220 MG CAPSULE PO SCH (09:30)
[2023-01-26] MEDS: ENOXAPARIN SODIUM 40 MG/0.4 ML DISP.SYRIN SQ SCH (09:32)
[2023-01-26 16:40] VITALS: BP 111/76
--- NOTE | 2023-01-26 19:33 | NUR ---
RECEIVED REPORT FROM [facility] SHIFT NURSE. PATIENT IS ALERT AND ORIENTED X4 AND SPEAKS LUXEMBOURGISH. VITAL SIGNS STABLE. PATIENT TOLERATES PO MEDICATIONS AND DIET WELL. PATIENT HAD COMPLAINT OF PAIN. RN GAVE MEDICATIONS ORDERED. PATIENT EXPRESSES RELIEF. PATIENT PARTICIPATES WITH PHYSICAL AND OCCUPATIONAL THERAPY SCHEDULED. PATIENT'S FAMILY VISITED. NO ACUTE DISTRESS NOTED. CALL LIGHT WITHIN REACH. FALL PRECAUTIONS OBSERVED. RN ENDORSED CARE TO [facility] SHIFT RN FOR CONTINUATION OF CARE.
[2023-01-26 20:51] VITALS: BP 110/69
[2023-01-26] MEDS: ATORVASTATIN 10 MG TABLET PO SCH (20:52)
[2023-01-27 04:50] VITALS: BP 111/72
[2023-01-27] MEDS: OXYCODONE HCL 10 MG TAB.SR.12H PO SCH ×3 (06:17→22:07)
--- NOTE | 2023-01-27 06:50 | NUR ---
Slept intermittently, no noted respiratory distress. Medicated for pain with good effect. Needs assessed and attended to.
--- NOTE | 2023-01-27 08:00 | NUR ---
Received Pt in her room, lying in bed asleep at this time with no S/S of discomforts noted,family at bed side sleeping , fall and safety precautions implemented. will continue to monitor. call light with in reach
[2023-01-27] MEDS: LIDOCAINE 5% PATCH TD SCH ×3 (09:40→21:00)
[2023-01-27] MEDS: ENOXAPARIN SODIUM 40 MG/0.4 ML DISP.SYRIN SQ SCH (09:42)
[2023-01-27] MEDS: CHOLECALCIFEROL 1,000 UNIT TABLET PO SCH (09:45)
[2023-01-27] MEDS: DOCUSATE SODIUM 100 MG CAPSULE PO SCH ×2 (10:24→20:46)
[2023-01-27] MEDS: ASCORBIC ACID 500 MG TABLET PO SCH (10:25)
[2023-01-27] MEDS: AMLODIPINE 5 MG TABLET PO SCH ×2 (10:25→20:46)
[2023-01-27] MEDS: ZINC SULFATE 220 MG CAPSULE PO SCH (10:26)
[2023-01-27 15:35] VITALS: BP 141/85
--- NOTE | 2023-01-27 18:40 | NUR ---
No significant event reported all shift Pt participated in rehab activities and went to gym with PT this afternoon. Pain med given as scheduled. All needs attended and met. Continue current rehab plan of care.
[2023-01-27 20:35] VITALS: BP 122/76
[2023-01-27] MEDS: ATORVASTATIN 10 MG TABLET PO SCH (20:46)
[2023-01-28 04:49] VITALS: BP 112/68
[2023-01-28] MEDS: OXYCODONE HCL 10 MG TAB.SR.12H PO SCH ×3 (06:02→22:08)
[2023-01-28 07:35] VITALS: BP 114/72
[2023-01-28] MEDS: AMLODIPINE 5 MG TABLET PO SCH ×2 (08:00→22:03)
[2023-01-28] MEDS: CHOLECALCIFEROL 1,000 UNIT TABLET PO SCH (08:00)
[2023-01-28] MEDS: ASCORBIC ACID 500 MG TABLET PO SCH (08:00)
[2023-01-28] MEDS: DOCUSATE SODIUM 100 MG CAPSULE PO SCH ×2 (08:00→21:50)
[2023-01-28] MEDS: ZINC SULFATE 220 MG CAPSULE PO SCH (08:01)
[2023-01-28] MEDS: ENOXAPARIN SODIUM 40 MG/0.4 ML DISP.SYRIN SQ SCH (08:01)
--- NOTE | 2023-01-28 09:50 | NUR ---
0730-Rec'd patient in bed, AAOX4, verbally communicative, on R/A, no respiratory distress noted. Patient denies pain. Cast to RLL, able to wiggle toes, denies any numbness or tingling. Left arm sling in place. No skin/circulation impairment noted. Safety precaution reminders provided/observed/encouraged patient to use call light for help every time needed. 0900-Scheduled medications administered, no ASE noted; oral fluids taken well. No s/s of hypo/HTN. Patient OOB on WC eating breakfast and waiting for [facility] ambulance to last picker and taken to [facility] for core driller helper apt. 0945-[facility] ambulance arrived, patient transferred safely to [facility], left in good stable conditions, n o c/o pain.
--- NOTE | 2023-01-28 12:25 | NUR ---
1225-Patient came back from apt. brought via regular ambulance/gurney in usual stable baseline conditions, patient denies pain. VSS, transferred safely back to her bed. Assisted her with lunch tray. No written feed back rec'd from Dr. Martin. Per patient's verbal statement, Dr. Martin spoke to her about a possible surgery to her rt foot on .
[2023-01-28 14:59] VITALS: BP 118/70
[2023-01-28 20:00] VITALS: BP 108/75
[2023-01-28] MEDS: ATORVASTATIN 10 MG TABLET PO SCH (21:50)
[2023-01-28] MEDS: LIDOCAINE 5% PATCH TD SCH ×2 (22:00)
[2023-01-29] MEDS: OXYCODONE HCL 10 MG TAB.SR.12H PO SCH ×3 (06:28→22:01)
--- NOTE | 2023-01-29 06:35 | NUR ---
RN NOTE: PT AOX4 at start of shift. Pt needs assessed and attended to as needed. Pt spouse assisting with care. Pt slept through the night. 0600 AM meds administered as per order.
[2023-01-29] MEDS: ASCORBIC ACID 500 MG TABLET PO SCH (08:42)
[2023-01-29] MEDS: ENOXAPARIN SODIUM 40 MG/0.4 ML DISP.SYRIN SQ SCH (08:43)
[2023-01-29] MEDS: CHOLECALCIFEROL 1,000 UNIT TABLET PO SCH (08:43)
[2023-01-29] MEDS: ZINC SULFATE 220 MG CAPSULE PO SCH (08:43)
[2023-01-29] MEDS: DOCUSATE SODIUM 100 MG CAPSULE PO SCH ×2 (08:43→22:00)
[2023-01-29] MEDS: AMLODIPINE 5 MG TABLET PO SCH ×2 (08:50→22:00)
--- NOTE | 2023-01-29 14:25 | NUR ---
Unable to assess, check for edema in bilateral lower extremities due to braces and ambrocio bandages wrapped around bilateral LE.
--- NOTE | 2023-01-29 18:53 | NUR ---
SWITCH PT TO MED/SURG Tomorrow 01/30 or 01/31 for pt to have scheduled surgery this Thursday 02/01 here at [facility].
[2023-01-29 20:25] VITALS: BP 129/88
[2023-01-29] MEDS: LIDOCAINE 5% PATCH TD SCH ×2 (21:00)
[2023-01-29] MEDS: ATORVASTATIN 10 MG TABLET PO SCH (22:00)
--- NOTE | 2023-01-30 04:15 | NUR ---
AAOx4 OOB to wheelchair upon initial rounds. All needs attended. VSS. Kept comfortable. Patient concerned about surgery on 02/01/23 she says she's kind of scared about. Reassured patient she will be okay. Able to transfer from wheelchair to bed independently. Tolerated po meds well. Kept comfortable. Will monitor patient.RLE with splint and ambrocio wrap. Voiding well. Siderails up for safety.
[2023-01-30 05:21] VITALS: BP_SYST 110; BP_SYST 118; BP_DIAS 73; BP_DIAS 82
[2023-01-30] MEDS: OXYCODONE HCL 10 MG TAB.SR.12H PO SCH ×3 (06:02→21:17)
[2023-01-30 08:00] VITALS: BP 115/72
[2023-01-30] MEDS: AMLODIPINE 5 MG TABLET PO SCH ×2 (08:25→21:17)
[2023-01-30] MEDS: CHOLECALCIFEROL 1,000 UNIT TABLET PO SCH (08:25)
[2023-01-30] MEDS: DOCUSATE SODIUM 100 MG CAPSULE PO SCH ×2 (08:25→21:17)
[2023-01-30] MEDS: ASCORBIC ACID 500 MG TABLET PO SCH (08:25)
[2023-01-30] MEDS: ZINC SULFATE 220 MG CAPSULE PO SCH (08:26)
[2023-01-30] MEDS: ENOXAPARIN SODIUM 40 MG/0.4 ML DISP.SYRIN SQ SCH (08:27)
--- NOTE | 2023-01-30 09:04 | NUR ---
INTERDISCIPLINARY TEAM CONFERENCE
[2023-01-30 15:13] VITALS: BP 131/83
--- NOTE | 2023-01-30 18:51 | NUR ---
Patient AOX4, verbalizes needs and follows directions within usual baseline & stable conditions. Pain well controlled and managed with medication as ordered by MD. Patient continues under rehab for PT/OT skilled services and mike. fairly. Extensive assist provided with ADLS through out the shift. RT LE with cast in place, patient able to move toes/wiggle, denies numbness or tingling. Continues under lovenox PPX DVT. No unusual bleeding noted. Safety precautions observed, handled gently and carefully during care. Assisted with care at routine intervals and as needed. Needs attended well and met. Patient with pending surgery/scheduled on 02/01/23, per Dr. Berkowitz, hold lovenox tomorrow. Endorsed to relieving license appropriately for proper follow up.
[2023-01-30 20:51] VITALS: BP 112/74
[2023-01-30] MEDS: LIDOCAINE 5% PATCH TD SCH ×2 (21:17→21:18)
[2023-01-30] MEDS: ATORVASTATIN 10 MG TABLET PO SCH (21:17)
--- NOTE | 2023-01-31 04:18 | NUR ---
AAO x 4. OOB in wheelchair at beginning of shift. No distress noted. Patient tolerated po meds without difficulty. Pain meds given as scheduled. Patient for possiblity for OR on Saturday (02/01). Patient to transferred to [facility] today. Will monitor patient. Kept comfortable.
[2023-01-31 05:37] VITALS: BP 117/73
[2023-01-31] MEDS: OXYCODONE HCL 10 MG TAB.SR.12H PO SCH (05:51)
[2023-01-31 08:01] VITALS: BP 130/88
[2023-01-31 08:27] VITALS: BP 130/88
[2023-01-31] MEDS: AMLODIPINE 5 MG TABLET PO SCH (08:27)
[2023-01-31] MEDS: CHOLECALCIFEROL 1,000 UNIT TABLET PO SCH (08:27)
[2023-01-31] MEDS: ZINC SULFATE 220 MG CAPSULE PO SCH (08:27)
[2023-01-31] MEDS: ASCORBIC ACID 500 MG TABLET PO SCH (08:27)
[2023-01-31] MEDS: DOCUSATE SODIUM 100 MG CAPSULE PO SCH (08:28)
[2023-01-31] MEDS: ENOXAPARIN SODIUM 40 MG/0.4 ML DISP.SYRIN SQ SCH (08:28)
--- NOTE | 2023-01-31 09:15 | NUR ---
PATIENT IS ALERT, ORIENTED X4, NO SOB, RESPIRATIONS ARE EVEN NON LABORED, SKIN WARM AND DRY TO TOUCH. GOING TO ADMIT IN MEDSURGE UNIT, FOR RIGHT FOOT SURGERY TOMORROW. PATIENT IS AGREED WITH PLAN OF CARE.
[2023-01-31] MEDS ORDERED: AMLO5TAB4 PO (11:32)
[2023-01-31] MEDS ORDERED: METH57CR22 TP (11:32)
[2023-01-31] MEDS ORDERED: ASCO500C18 PO (11:32)
[2023-01-31] MEDS ORDERED: HYDR25CA PO (11:32)
[2023-01-31] MEDS ORDERED: DOCU-141 PO (11:32)
[2023-01-31] MEDS ORDERED: ATOR10TA PO (11:32)
[2023-01-31] MEDS ORDERED: LIDO30AD10 TD (11:32)
== END 2023-01-31 09:21 | disposition short-term general hospital (02) | DRG 560 ==
PROVIDERS: ADMIT Physical Medicine & Rehabilitation Pain Medicine; ATTEND Physical Medicine & Rehabilitation Pain Medicine
DX: S72.351D Displaced comminuted fracture of shaft of right femur, subsequent encounter for closed fracture with routine healing (principal); D62 Acute posthemorrhagic anemia; D68.59 Other primary thrombophilia; J98.11 Atelectasis; S92.331D Displaced fracture of third metatarsal bone, right foot, subsequent encounter for fracture with routine healing; S92.351D Displaced fracture of fifth metatarsal bone, right foot, subsequent encounter for fracture with routine healing; S02.2XXD Fracture of nasal bones, subsequent encounter for fracture with routine healing; S52.132A Displaced fracture of neck of left radius, initial encounter for closed fracture; S82.201D Unspecified fracture of shaft of right tibia, subsequent encounter for closed fracture with routine healing; S82.401D Unspecified fracture of shaft of right fibula, subsequent encounter for closed fracture with routine healing; S22.49XD Multiple fractures of ribs, unspecified side, subsequent encounter for fracture with routine healing; S92.352D Displaced fracture of fifth metatarsal bone, left foot, subsequent encounter for fracture with routine healing; I10 Essential (primary) hypertension; V89.2XXD Person injured in unspecified motor-vehicle accident, traffic, subsequent encounter; E78.5 Hyperlipidemia, unspecified; S27.0XXD Traumatic pneumothorax, subsequent encounter; V89.2XXA Person injured in unspecified motor-vehicle accident, traffic, initial encounter; Y92.410 Unspecified street and highway as the place of occurrence of the external cause
CPT/HCPCS: 36415; 71045; 73000; 73060; 73080; 73110; 73551; 73590; 73610; 73630; 73660; 83735; 84100; 84443; 85025; 97535-GO-CO; A4663; J1650; Q0163

== ENCOUNTER 2023-01-31 09:37 | Inpatient (IN) | payer BC, OTHER ==
[~2023-01-31] VITALS: Ht 160 cm; Wt 62.6 kg
[~2023-01-31 09:37] MED LIST changes: +AMLO-212 PO; +BIOT1CAP3 PO; +BIOT1TAB PO; +CHOL100062 PO; +ENOX40DI SQ; +HYDR-3980 PO; -LOSA50TA39 PO; +ZINC220T3 PO
[2023-01-31] MEDS ORDERED: NALOXONE HCL 0.4 MG/ML AMPUL IV PRN (11:30)
[2023-01-31] MEDS ORDERED: ATOR10TA PO (11:32)
[2023-01-31] MEDS ORDERED: ASCO500C18 PO (11:32)
[2023-01-31] MEDS ORDERED: LIDO30AD10 TD (11:32)
[2023-01-31] MEDS ORDERED: DOCU-141 PO (11:32)
[2023-01-31] MEDS ORDERED: HYDR25CA PO (11:32)
[2023-01-31] MEDS ORDERED: METH57CR22 TP (11:32)
[2023-01-31] MEDS ORDERED: AMLO5TAB4 PO (11:32)
[2023-01-31] MEDS: OXYCODONE HCL 10 MG TAB.SR.12H PO SCH ×2 (13:23→22:20)
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
--- NOTE | 2023-01-31 13:42 | NUR ---
LOVENOX IS ON HOLD FOR NOW FOR SURGERY TOMORROW. WILL FOLLOW UP AFTER SURGERY
--- NOTE | 2023-01-31 13:43 | NUR ---
SURGERY IS TOMMAROW AT 7AM AND NPO AT MIDNIGHT
[2023-01-31 15:06] LABS: HEMATOCRIT 32.6 % (31.2-41.9); MEAN CORPUSCULAR HEMOGLOBIN 31.3 uug (24.7-32.8); MEAN CORPUSCULAR VOLUME 94.1 fL (75.5-95.3); PLATELET COUNT (AUTO) 359 K/uL (179-408)
[2023-01-31 15:25] LABS: BILIRUBIN,TOTAL 0.3 mg/dL (0.2-1.0); CREATININE 0.7 mg/dL (0.6-1.3); TOTAL PROTEIN, SERUM 7.1 g/dL (6.4-8.2)
[2023-01-31] MEDS ORDERED: HYDROCODONE/APAP 10-325 MG TABLET PO PRN (15:45)
[2023-01-31] MEDS ORDERED: HYDROXYZINE PAMOATE 25 MG CAPSULE PO PRN (15:45)
[2023-01-31 16:00] VITALS: BP 116/73
--- NOTE | 2023-01-31 17:22 | NUR ---
patient goes to bathroom herself, with FWW, right leg is non weight bearing, fall prevention precautions reviewed patient, call for welder assistant, patient verbalized understanding of it.
[2023-01-31] MEDS ORDERED: MORPHINE SULFATE 2 MG/1 ML DISP.SYRIN IV PRN (19:00)
[2023-01-31] MEDS: IV D5/ 0.9% NACL 1,000 ML IV PRN (19:35)
--- NOTE | 2023-01-31 20:00 | NUR ---
RECEIVED PATIENT AWAKE IN BED WITH BOYFRIEND AT BEDSIDE. PATIENT IS A/O X4. C/O DISCOMFORT BUT DENIES NEED FOR ANY PAIN MEDICATION AT THIS TIME. VS WNL. IVF STARTED AND INFUSING WELL TO RIGHT HAND #20 GAUGE. PATIENT WILL BE NPO AFTER MIDNIGHT FOR SURGERY IM AM. PATIENT VERBALIZED UNDERSTANDING. CALL LIGHT IN REACH. ALL NEEDS ATTENDED. WILL CONTINUE TO MONITOR AND ASSESS.
[2023-01-31] MEDS: DOCUSATE SODIUM 100 MG CAPSULE PO SCH ×2 (20:38→20:54)
[2023-01-31] MEDS: ATORVASTATIN 10 MG TABLET PO SCH (20:38)
[2023-01-31] MEDS: LIDOCAINE 5% PATCH TD SCH (20:38)
[2023-01-31] MEDS: AMLODIPINE 5 MG TABLET PO SCH (20:45)
[2023-01-31 23:18] VITALS: BP 126/77
--- NOTE | 2023-02-01 | NUR ---
PATIENT NPO ORDERED. IVF INFUSING WELL.
[2023-02-01] MEDS: OXYCODONE HCL 10 MG TAB.SR.12H PO SCH ×3 (05:24→21:50)
--- NOTE | 2023-02-01 06:09 | NUR ---
PATIENT AWAKE IN BED. DENIES ANY PAIN OR DISCOMFORT AT THIS TIME. KEPT NPO SINCE MIDNIGHT GONSALVES SURGERY THIS AM. VS WNL. H/L INTACT AND PATENT. CALL LIGHT IN REACH. ALL NEEDS ATTENDED, WILL CONTINUE TO MONITOR AND ASSESS.
[2023-02-01] MEDS ORDERED: BUPIVACAINE PF 0.5% 30 ML VIAL ONE (06:47)
[2023-02-01] MEDS ORDERED: LIDOCAINE HCL 1% 20 ML VIAL ONE (06:47)
[2023-02-01] MEDS ORDERED: BACITRACIN ZINC OINT 15 GM TUBE ONE (06:49)
[2023-02-01] MEDS ORDERED: PROPOFOL 200 MG/20 ML BOTTLE ONE (07:00)
[2023-02-01] MEDS ORDERED: CEFAZOLIN 1 G VIAL ONE ×2 (07:00)
[2023-02-01] MEDS ORDERED: NEOSTIGMINE METHYLSULFATE 10 MG/10 ML VIAL ONE (07:00)
[2023-02-01] MEDS ORDERED: ONDANSETRON 4 MG/2 ML VIAL ONE (07:00)
[2023-02-01] MEDS ORDERED: LIDOCAINE-MPF 2% 5 ML VIAL ONE (07:00)
[2023-02-01] MEDS ORDERED: METOCLOPRAMIDE HCL 10 MG/2 ML VIAL ONE (07:00)
[2023-02-01] MEDS ORDERED: GLYCOPYRROLATE 0.2 MG/ML VIAL ONE ×2 (07:00)
[2023-02-01] MEDS ORDERED: KETOROLAC TROMETHAMINE 30 MG INJ ONE ×2 (07:00)
--- NOTE | 2023-02-01 07:15 | NUR ---
PATIENT PICKED UP FOR SURGERY.
[2023-02-01] MEDS ORDERED: MIDAZOLAM HCL 2 MG/2 ML VIAL ONE (07:22)
[2023-02-01] MEDS ORDERED: HYDROMORPHONE 2 MG/1 ML DISP.SYRIN ONE (07:22)
[2023-02-01] MEDS ORDERED: FENTANYL CITRATE 250 MCG/5 ML AMPUL ONE (07:22)
[2023-02-01] MEDS ORDERED: ROCURONIUM BROMIDE 50 MG/5 ML VIAL ONE (07:23)
[2023-02-01] MEDS ORDERED: FAMOTIDINE. 20 MG/2 ML VIAL IV ONE (07:23)
[2023-02-01] MEDS: AMLODIPINE 5 MG TABLET PO SCH ×3 (09:00→20:57)
[2023-02-01] MEDS: ZINC SULFATE 220 MG CAPSULE PO SCH ×2 (09:00→13:32)
[2023-02-01] MEDS: DOCUSATE SODIUM 100 MG CAPSULE PO SCH ×3 (09:00→20:57)
[2023-02-01] MEDS: ASCORBIC ACID 500 MG TABLET PO SCH ×2 (09:00→13:31)
[2023-02-01] MEDS: CHOLECALCIFEROL 1,000 UNIT TABLET PO SCH ×2 (09:00→13:31)
[2023-02-01] MEDS: IV D5/ 0.9% NACL 1,000 ML IV PRN (11:21)
--- NOTE | 2023-02-01 19:36 | NUR ---
RECEIVED REPORT FROM PACU SHIFT RN AT 1120AM. PATIENT IS ALERT AND ORIENTED X4 AND SPEAKS MAURITIAN. VITAL SIGNS STABLE. PATIENT ABLE TO MOVE HER TOES. PATIENT TOLERATES PO & IV MEDICATIONS AND DIET WELL. PATIENT DENIES NAUSEA AND VOMITING. PATIENT HAD COMPLAINT OF PAIN. RN GAVE MEDICATIONS ORDERED. PATIENT EXPRESSES RELIEF. PERIWICK SYSTEM BACK IN PLACE. PATIENT REFUSES BREAKTHROUGH PAIN MEDICATION RELATED TO HER FEAR OF HURTING HER LIVER. IV FLUIDS DISCONTINUED PER MD REQUEST. RN DISCONTINUED IV PER PATIENT REQUEST AND SINCE SHE FELT IV INFILTRATED AND GIVING HER PAIN. PATIENT VOIDS ADEQUATELY. NO ACUTE DISTRESS NOTED. CALL LIGHT WITHIN REACH. FALL PRECAUTIONS OBSERVED. RN ENDORSED CARE TO [facility] SHIFT NURSE FOR CONTINUATION OF CARE.
[2023-02-01 20:19] VITALS: BP 122/81
[2023-02-01] MEDS: LIDOCAINE 5% PATCH TD SCH (20:58)
[2023-02-01] MEDS: ATORVASTATIN 10 MG TABLET PO SCH (21:00)
[2023-02-02] MEDS: OXYCODONE HCL 10 MG TAB.SR.12H PO SCH ×3 (05:49→21:45)
[2023-02-02 05:58] VITALS: BP 109/68
[2023-02-02 07:00] LABS: HEMATOCRIT 33.8 % (31.2-41.9); MEAN CORPUSCULAR HEMOGLOBIN 31.3 uug (24.7-32.8); MEAN CORPUSCULAR VOLUME 94.9 fL (75.5-95.3); PLATELET COUNT (AUTO) 354 K/uL (179-408)
[2023-02-02 07:26] LABS: ALANINE AMINOTRANSFERASE 94 U/L (14-59); ALKALINE PHOSPHATASE 134 U/L (50-136); ASPARTATE AMINOTRANSFERASE 28 U/L (15-37); BILIRUBIN,TOTAL 0.4 mg/dL (0.2-1.0); CARBON DIOXIDE 28 mmol/L (21-32); CHLORIDE 106 mmol/L (98-107); CREATININE 0.5 mg/dL (0.6-1.3); GLUCOSE 97 mg/dL (74-106); MAGNESIUM 2.2 mg/dL (1.8-2.4); PHOSPHOROUS 4.2 mg/dL (2.5-4.9); POTASSIUM 4.3 mmol/L (3.5-5.1); UREA NITROGEN, BLOOD 8 mg/dL (7-18)
[2023-02-02 08:00] VITALS: BP 108/68
[2023-02-02] MEDS: AMLODIPINE 5 MG TABLET PO SCH ×3 (09:00→20:51)
[2023-02-02] MEDS: CHOLECALCIFEROL 1,000 UNIT TABLET PO SCH (09:12)
[2023-02-02] MEDS: ZINC SULFATE 220 MG CAPSULE PO SCH (09:12)
[2023-02-02] MEDS: ASCORBIC ACID 500 MG TABLET PO SCH (09:12)
[2023-02-02] MEDS: DOCUSATE SODIUM 100 MG CAPSULE PO SCH ×2 (09:12→20:50)
[2023-02-02 16:36] VITALS: BP 116/79
[2023-02-02] MEDS: LIDOCAINE 5% PATCH TD SCH (20:50)
[2023-02-02] MEDS: ATORVASTATIN 10 MG TABLET PO SCH (20:51)
--- NOTE | 2023-02-03 01:22 | NUR ---
patient is alert, oriented x4, no sob, respirations are even nonlabored, status post right foot revision, able to move her toes, toes are pink in color, dressing intact. no spots noted on dressing. clean and dry. patient refused to have IV Line, eating drinking adequately, tolerating well, no nausea, no vomiting.
[2023-02-03] MEDS: OXYCODONE HCL 10 MG TAB.SR.12H PO SCH ×3 (05:41→21:15)
--- NOTE | 2023-02-03 07:00 | NUR ---
pt received in bed awake no c/o pain noted vs are stable call light with in reach ,family at bed side
[2023-02-03] MEDS: ZINC SULFATE 220 MG CAPSULE PO SCH (08:08)
[2023-02-03] MEDS: CHOLECALCIFEROL 1,000 UNIT TABLET PO SCH (08:09)
[2023-02-03] MEDS: DOCUSATE SODIUM 100 MG CAPSULE PO SCH ×2 (08:09→20:01)
[2023-02-03] MEDS: ASCORBIC ACID 500 MG TABLET PO SCH (08:09)
[2023-02-03] MEDS: AMLODIPINE 5 MG TABLET PO SCH ×2 (08:10→20:01)
[2023-02-03 12:00] VITALS: BP 110/71
--- NOTE | 2023-02-03 12:00 | NUR ---
pt went to rehab shower with the boyfriend for shower in wheel chair
--- NOTE | 2023-02-03 15:11 | NUR ---
pt get up by her self from the bed and transfer to the wheel chair her self she wants to brush her teeth offer help, pt said she will do it ,explain the pt for safety precautions .
[2023-02-03 16:00] VITALS: BP 113/75
[2023-02-03] MEDS: LIDOCAINE 5% PATCH TD SCH (20:01)
[2023-02-03] MEDS: ATORVASTATIN 10 MG TABLET PO SCH (20:01)
[2023-02-03 20:13] VITALS: BP 116/78
--- NOTE | 2023-02-03 23:33 | NUR ---
pt is sleeping at this time boyfriend at bed side
[2023-02-04 04:49] VITALS: BP 115/78
[2023-02-04] MEDS: OXYCODONE HCL 10 MG TAB.SR.12H PO SCH ×2 (05:33→14:03)
--- NOTE | 2023-02-04 08:20 | NUR ---
Patient awake and alert, states her pain is "ok" at this time as she had received pain medication earlier.
[2023-02-04] MEDS: ZINC SULFATE 220 MG CAPSULE PO SCH (08:31)
[2023-02-04] MEDS: DOCUSATE SODIUM 100 MG CAPSULE PO SCH (08:31)
[2023-02-04] MEDS: CHOLECALCIFEROL 1,000 UNIT TABLET PO SCH (08:31)
[2023-02-04] MEDS: ASCORBIC ACID 500 MG TABLET PO SCH (08:31)
[2023-02-04] MEDS: AMLODIPINE 5 MG TABLET PO SCH (08:32)
[2023-02-04] MEDS ORDERED: CHOL100062 PO (11:22)
[2023-02-04 11:38] VITALS: BP 108/76
--- NOTE | 2023-02-04 14:00 | NUR ---
Patient seen and evaluated by PT, ambulated in the hallway and was in her wheelchair. Patient discharged from Med Surg status and will be admitted in ARU.
[2023-02-04] MEDS ORDERED: OXYC10TA59 PO (17:23)
== END 2023-02-04 15:30 | DRG 496 ==
LOC: MEDSURG3 09:37
PROVIDERS: ADMIT Internal Medicine; ATTEND Internal Medicine
PROC: 0LXV0ZZ Transfer Right Foot Tendon, Open Approach (ICD-10-PCS; principal; 2023-02-01)
PROC: 0QPN04Z Removal of Internal Fixation Device from Right Metatarsal, Open Approach (ICD-10-PCS; 2023-02-01)
DX: S92.351K Displaced fracture of fifth metatarsal bone, right foot, subsequent encounter for fracture with nonunion (principal); D68.59 Other primary thrombophilia; V49.49XD Driver injured in collision with other motor vehicles in traffic accident, subsequent encounter; S27.0XXD Traumatic pneumothorax, subsequent encounter; S92.352D Displaced fracture of fifth metatarsal bone, left foot, subsequent encounter for fracture with routine healing; S22.49XD Multiple fractures of ribs, unspecified side, subsequent encounter for fracture with routine healing; I10 Essential (primary) hypertension; D75.838 Other thrombocytosis; E78.5 Hyperlipidemia, unspecified; F41.9 Anxiety disorder, unspecified; S52.132A Displaced fracture of neck of left radius, initial encounter for closed fracture; V49.49XA Driver injured in collision with other motor vehicles in traffic accident, initial encounter; Y92.410 Unspecified street and highway as the place of occurrence of the external cause; D64.89 Other specified anemias; R74.01 Elevation of levels of liver transaminase levels; Z74.09 Other reduced mobility; Z79.899 Other long term (current) drug therapy
CPT/HCPCS: 36415; 83735; 84100; 85025; G0378; J0690; J1170; J1885; J2250; J2405; J2765; J3010; J3490; J7042; J7070

== ENCOUNTER 2023-02-02 12:48 | Inpatient (IN) | payer BC, OTHER ==
[~2023-02-02] VITALS: Ht 154.9 cm; Wt 59.0 kg
[~2023-02-02 12:48] MED LIST changes: -AMLO-212 PO; +AMLO5TAB4 PO; +ASCO500C18 PO; +ATOR10TA PO; -BIOT1CAP3 PO; -BIOT1TAB PO; -CHOL100062 PO; -CODE473L6 PO; -DM/P295L17 PO; +DOCU-141 PO; -ENOX40DI SQ; -HYDR-4209 PO; +HYDR25CA PO; +LIDO30AD10 TD; +METH57CR22 TP; -ONDA4TAB5 PO
[2023-02-04] MEDS ORDERED: CHOL100062 PO (11:22)
[2023-02-04 15:49] VITALS: BP 111/66; TEMP 98.4; O2SAT 98
[2023-02-04] MEDS ORDERED: OXYC10TA59 PO (17:23)
[2023-02-04] MEDS ORDERED: HYDROXYZINE PAMOATE 25 MG CAPSULE PO PRN (18:30)
--- NOTE | 2023-02-04 19:00 | NUR ---
RECD PT IN BED, RESTING FAIRLY WELL, ALERT ,ORIENTED X4, SIGNIFICANT OTHER AT BEDSIDE. NEEDS ATTENDED TO, IN GOOD SPIRITS.
[2023-02-04 20:00] VITALS: BP 131/86; TEMP 98.3; O2SAT 98
[2023-02-04] MEDS ORDERED: LIDOCAINE 5% PATCH TD SCH (21:00)
--- NOTE | 2023-02-04 21:00 | NUR ---
DUE MEDS GIVEN, AFEBRILE. ACTIVE LISTENING PROVIDED TO PT. SHE VERBALIZED HER FEELINGS REGARDING PAIN MANAGEMENT.
[2023-02-04] MEDS: DOCUSATE SODIUM 100 MG CAPSULE PO SCH (21:01)
[2023-02-04] MEDS: ATORVASTATIN 10 MG TABLET PO SCH (21:01)
[2023-02-04] MEDS: AMLODIPINE 5 MG TABLET PO SCH (21:02)
[2023-02-04] MEDS: LIDOCAINE 5% PATCH TD SCH (21:03)
[2023-02-05 04:00] VITALS: BP 114/80; TEMP 98.6; O2SAT 98
--- NOTE | 2023-02-05 07:29 | NUR ---
endorsed to am nurse in fair condition.no bm noted.
[2023-02-05 08:00] VITALS: BP 115/72; TEMP 98.3; O2SAT 95
[2023-02-05] MEDS: ASCORBIC ACID 500 MG TABLET PO SCH (09:40)
[2023-02-05] MEDS: ZINC SULFATE 220 MG CAPSULE PO SCH (09:40)
[2023-02-05] MEDS: AMLODIPINE 5 MG TABLET PO SCH ×2 (09:40→21:14)
[2023-02-05] MEDS: DOCUSATE SODIUM 100 MG CAPSULE PO SCH ×3 (09:40→21:14)
[2023-02-05] MEDS: CHOLECALCIFEROL 1,000 UNIT TABLET PO SCH (09:40)
[2023-02-05] MEDS: HYDROCODONE/APAP 10-325 MG TABLET PO PRN ×2 (10:01→21:15)
[2023-02-05] MEDS: ENOXAPARIN SODIUM 40 MG/0.4 ML DISP.SYRIN SQ SCH (12:43)
[2023-02-05 16:00] VITALS: BP 126/87; TEMP 98.3; O2SAT 96
[2023-02-05 20:00] VITALS: BP 118/79; TEMP 98.5; O2SAT 97
[2023-02-05] MEDS: ATORVASTATIN 10 MG TABLET PO SCH ×2 (21:00→21:15)
[2023-02-05] MEDS: LIDOCAINE 5% PATCH TD SCH (21:15)
[2023-02-06 04:00] VITALS: BP 106/60; TEMP 98.1; O2SAT 98
--- NOTE | 2023-02-06 05:35 | NUR ---
AAOx4 Ambulates with platform walker during the day. Tolerated poi meds well. Kept comfortable. Needs attended. VSS Purewick to suction moderate amount of yellow urine noted. Will monitor patient. Pain meds given as needed. No distress noted.
--- NOTE | 2023-02-06 07:30 | NUR ---
Patient in bed, family members at bedside. Pain tolerable at this time.
[2023-02-06 08:30] VITALS: BP 116/85; TEMP 98; O2SAT 95
[2023-02-06] MEDS: ZINC SULFATE 220 MG CAPSULE PO SCH (09:04)
[2023-02-06] MEDS: CHOLECALCIFEROL 1,000 UNIT TABLET PO SCH (09:05)
[2023-02-06] MEDS: DOCUSATE SODIUM 100 MG CAPSULE PO SCH ×2 (09:05→20:19)
[2023-02-06] MEDS: ENOXAPARIN SODIUM 40 MG/0.4 ML DISP.SYRIN SQ SCH (09:06)
[2023-02-06] MEDS: HYDROCODONE/APAP 10-325 MG TABLET PO PRN ×2 (09:11→18:10)
[2023-02-06] MEDS: ASCORBIC ACID 500 MG TABLET PO SCH (09:23)
[2023-02-06] MEDS: AMLODIPINE 5 MG TABLET PO SCH ×2 (09:23→20:28)
--- NOTE | 2023-02-06 11:16 | NUR ---
INTERDISCIPLINARY TEAM CONFERENCE
[2023-02-06 15:52] VITALS: BP 109/73; TEMP 98.3; O2SAT 98
[2023-02-06 20:00] VITALS: BP 125/83; TEMP 98.4; O2SAT 97
[2023-02-06] MEDS: ATORVASTATIN 10 MG TABLET PO SCH ×2 (20:19→20:34)
[2023-02-06] MEDS: LIDOCAINE 5% PATCH TD SCH (20:20)
--- NOTE | 2023-02-07 03:00 | NUR ---
SPOKE TO JEAN PAUL MACK CONFIRMING TRANSPORTATION TO [facility] FOR ORTHO APPOINTMENT. PAINT AND TABLE EDGER TIME 0800. WILL ENDORSE TO INCOMING NURSE.
[2023-02-07 04:00] VITALS: BP 114/72; TEMP 98.3; O2SAT 97
[2023-02-07] MEDS: HYDROCODONE/APAP 10-325 MG TABLET PO PRN ×2 (07:43→18:53)
[2023-02-07 07:45] VITALS: BP 123/72; TEMP 98.4; O2SAT 98
--- NOTE | 2023-02-07 08:10 | NUR ---
Pt left the hospital for her Appointment with Dr. Velasco in his [place] office. Left via [place] accompanied by 2 foreman shipping department director of therapy services. Will give her morning medicine when she returns. Haris given for transport and increasing 4/10 pain.
--- NOTE | 2023-02-07 10:09 | NUR ---
Pt back in her room, returned via gurney and transferred easily to bed by [facility] EMT/Paramedics and RN. Pt stable.
[2023-02-07] MEDS: ZINC SULFATE 220 MG CAPSULE PO SCH (10:22)
[2023-02-07] MEDS: CHOLECALCIFEROL 1,000 UNIT TABLET PO SCH (10:23)
[2023-02-07] MEDS: ASCORBIC ACID 500 MG TABLET PO SCH (10:23)
[2023-02-07] MEDS: AMLODIPINE 5 MG TABLET PO SCH ×2 (10:23→21:00)
[2023-02-07] MEDS: DOCUSATE SODIUM 100 MG CAPSULE PO SCH ×2 (10:23→21:00)
[2023-02-07] MEDS: ENOXAPARIN SODIUM 40 MG/0.4 ML DISP.SYRIN SQ SCH (10:30)
--- NOTE | 2023-02-07 11:46 | NUR ---
INDIVIDUALIZED PLAN OF CARE
[2023-02-07 15:47] VITALS: BP 118/71; TEMP 98.1; O2SAT 99
[2023-02-07 20:08] VITALS: BP 124/86; TEMP 98.5; O2SAT 98
[2023-02-07] MEDS: LIDOCAINE 5% PATCH TD SCH (21:00)
[2023-02-07] MEDS: ATORVASTATIN 10 MG TABLET PO SCH (21:00)
[2023-02-08 05:55] VITALS: BP 118/71; TEMP 98.6; O2SAT 98
--- NOTE | 2023-02-08 06:47 | NUR ---
Patient slept well throughout the night, no acute distress noted. Needs assessed and attended to.
[2023-02-08 08:26] VITALS: BP 128/89; TEMP 98.4; O2SAT 97
[2023-02-08] MEDS: ASCORBIC ACID 500 MG TABLET PO SCH (08:50)
[2023-02-08] MEDS: ZINC SULFATE 220 MG CAPSULE PO SCH (08:50)
[2023-02-08] MEDS: DOCUSATE SODIUM 100 MG CAPSULE PO SCH ×2 (08:50→21:06)
[2023-02-08] MEDS: AMLODIPINE 5 MG TABLET PO SCH ×2 (08:51→21:06)
[2023-02-08] MEDS: CHOLECALCIFEROL 1,000 UNIT TABLET PO SCH (08:51)
[2023-02-08] MEDS: ENOXAPARIN SODIUM 40 MG/0.4 ML DISP.SYRIN SQ SCH (08:52)
--- NOTE | 2023-02-08 09:45 | NUR ---
Pt c/o feeling "hot and cold". Also saying that her urine feels hot, but "not burning". Pt's VSS and afebrile. Pt was given an ice pack, which she applied to her arm pits, and 2 cranberry juices which she drank. Notified charge machine operator, advised to monitor her VS closely and have her rest in bed. Pt wanted to do her PT and chair shower. PT aware of pt's feelings and retook pt's BP during her walk, SBP 116, and will also monitor her closely during her chair shower. I replaced pt's Purewick, suction tubing, and suction canister with new supplies. Will notify MD and recheck vitals when pt is back from PT.
--- NOTE | 2023-02-08 11:01 | NUR ---
Pt back from her chair shower feeling much better, stated "I'm fine now." floor assembler at bedside to check on pt as well. Pt in WC, no s/s of distress noted. Will continue to monitor.
[2023-02-08 16:57] VITALS: BP 117/77; TEMP 98.2; O2SAT 97
[2023-02-08 20:19] VITALS: BP 136/77; TEMP 98.2; O2SAT 99
[2023-02-08] MEDS: ATORVASTATIN 10 MG TABLET PO SCH (21:00)
[2023-02-08] MEDS: LIDOCAINE 5% PATCH TD SCH (21:05)
[2023-02-09 04:15] VITALS: BP 122/79; TEMP 98.1; O2SAT 99
[2023-02-09] MEDS: HYDROCODONE/APAP 10-325 MG TABLET PO PRN (04:50)
--- NOTE | 2023-02-09 06:34 | NUR ---
AAOx4 OOB in platform walker. Needs attended. VSS Quiet night. Medicated for pain as needed. Kept comfortable. Will monitor patient.
[2023-02-09 07:50] VITALS: BP 98/64; TEMP 98.4; O2SAT 98
[2023-02-09] MEDS: AMLODIPINE 5 MG TABLET PO SCH ×2 (09:00→20:48)
[2023-02-09] MEDS: ZINC SULFATE 220 MG CAPSULE PO SCH (09:38)
[2023-02-09] MEDS: DOCUSATE SODIUM 100 MG CAPSULE PO SCH ×2 (09:38→20:48)
[2023-02-09] MEDS: ASCORBIC ACID 500 MG TABLET PO SCH (09:38)
[2023-02-09] MEDS: CHOLECALCIFEROL 1,000 UNIT TABLET PO SCH (09:38)
[2023-02-09] MEDS: ENOXAPARIN SODIUM 40 MG/0.4 ML DISP.SYRIN SQ SCH (09:40)
[2023-02-09 15:53] VITALS: BP 119/68; TEMP 98.5; O2SAT 99
[2023-02-09] MEDS ORDERED: ACETAMINOPHEN 325 MG TABLET PO ONE (16:15)
--- NOTE | 2023-02-09 16:46 | NUR ---
Notified Dr. Craft regarding an order for Tylenol. Received order for Tylenol 650mg Q6Hrs PRN. Order was placed.
[2023-02-09 19:47] VITALS: BP 119/78; TEMP 98.7; O2SAT 98
[2023-02-09] MEDS: ATORVASTATIN 10 MG TABLET PO SCH (20:48)
[2023-02-09] MEDS: LIDOCAINE 5% PATCH TD SCH (20:48)
[2023-02-09] MEDS: ACETAMINOPHEN 325 MG TABLET PO PRN (21:11)
--- NOTE | 2023-02-10 04:28 | NUR ---
AAOx4 No acute distress noted. Needs attended. VSS. Kept comfortable. Tolerated po meds well. Medicated with tylenol for pain right foot. VSS.
[2023-02-10 06:15] VITALS: BP 129/78; TEMP 97.8; O2SAT 95
--- NOTE | 2023-02-10 07:33 | NUR ---
Upon routine shift exchange rounds rec'd patient in bed, asleep, no resp. distress noted. Patient wakes up on verbal commands, denies pain or any discomfort. Bedside table with all needed items in place and at patient's reach. Safety measures in place and call light at reach, reminded and encouraged patient to use it every time help is needed with good understanding.
[2023-02-10 07:45] VITALS: BP 115/82; TEMP 98.6; O2SAT 97
[2023-02-10] MEDS: ENOXAPARIN SODIUM 40 MG/0.4 ML DISP.SYRIN SQ SCH (08:18)
[2023-02-10] MEDS: DOCUSATE SODIUM 100 MG CAPSULE PO SCH ×2 (08:19→21:00)
[2023-02-10] MEDS: CHOLECALCIFEROL 1,000 UNIT TABLET PO SCH (08:19)
[2023-02-10] MEDS: AMLODIPINE 5 MG TABLET PO SCH ×2 (08:19→21:23)
[2023-02-10] MEDS: ASCORBIC ACID 500 MG TABLET PO SCH (08:19)
[2023-02-10] MEDS: ZINC SULFATE 220 MG CAPSULE PO SCH (08:19)
--- NOTE | 2023-02-10 11:15 | NUR ---
0900-Scheduled medication administered as ordered with no ASE noted. Oral fluids taken well. Safety measures in place and call light at reach.
[2023-02-10 16:23] VITALS: BP 119/78; TEMP 98.4; O2SAT 98
[2023-02-10 16:24] VITALS: BP 119/78; TEMP 98.4; O2SAT 98
--- NOTE | 2023-02-10 19:18 | NUR ---
Patient in stable conditions during shift; AO/x4, patient able to verbalize her needs and follows directions, denies pain or discomfort. VSS during shift, no s/s of hypo/htn noted, eating and drinking fairly, denies GI discomfort. Continues under rehab for PT/OT skilled services, mike. well and actively able to participate in therapy. Assisted with ADLS and as needed. Safety precautions observed & safety precaution reminders provided. All needs attended well and met. Assisted with care at routine intervals and as needed; patient was assisted with a shower by her sign. other. Routine rounds and frequent visual checks done.
--- NOTE | 2023-02-10 19:59 | NUR ---
PATIENT COMPLAIN OF UNABLE TO SLEEP LAST NIGHT, NOTIFY LORRAINE WITH ORDER OF MELATONIN 3MG PO HS PRN.
[2023-02-10] MEDS ORDERED: MELATONIN 3 MG TABLET PO PRN (20:00)
[2023-02-10 20:12] VITALS: BP 112/79; TEMP 98.4; O2SAT 98
[2023-02-10] MEDS: ATORVASTATIN 10 MG TABLET PO SCH (21:00)
[2023-02-10] MEDS: LIDOCAINE 5% PATCH TD SCH (21:22)
[2023-02-11] MEDS ORDERED: diphenhydrAMINE 50 MG CAPSULE PO PRN (00:45)
[2023-02-11] MEDS ORDERED: MELATONIN 3 MG TABLET PO PRN (00:45)
--- NOTE | 2023-02-11 00:47 | NUR ---
patient still complain of unable to sleep, requesting to increase the melatonin, notify Siomara Moody PAPER [employer]INTS RESTORER with order of Melatonin 5mg po qhs prn for sleep.
[2023-02-11 08:00] VITALS: BP 120/78; TEMP 98.1; O2SAT 100
[2023-02-11] MEDS: ASCORBIC ACID 500 MG TABLET PO SCH (08:42)
[2023-02-11] MEDS: DOCUSATE SODIUM 100 MG CAPSULE PO SCH (08:43)
[2023-02-11] MEDS: ZINC SULFATE 220 MG CAPSULE PO SCH (08:43)
[2023-02-11] MEDS: CHOLECALCIFEROL 1,000 UNIT TABLET PO SCH (08:43)
[2023-02-11] MEDS: AMLODIPINE 5 MG TABLET PO SCH ×2 (08:47→20:55)
[2023-02-11] MEDS: ENOXAPARIN SODIUM 40 MG/0.4 ML DISP.SYRIN SQ SCH (08:49)
[2023-02-11 16:19] VITALS: BP 116/80; TEMP 98.3; O2SAT 98
[2023-02-11] MEDS ORDERED: TRAZODONE 50 MG TABLET PO PRN (16:30)
--- NOTE | 2023-02-11 18:26 | NUR ---
Patient AOX4, verbalizes needs and follows directions. Pain well managed, patient able to tolerate rehab PT/OT with no interruptions caused by pain, assisted with ADLs and as needed. Scheduled medications administered as ordered with no ASE noted. RT foot with clean DD dressing and splint in place. Patient able to wiggle toes, denies numbness/tingling, handled gently and carefully during care. Patient is continent of both, assisted to the bathroom Q2HRS as needed. Per patient she believes to see her RT food swollen and requesting to remove the dressing. MD Brewer (lieutenant colonel) was informed; per Dr. Brewer's instructions, "ok" to remove dressing on RT foot and that he will be here to further assess patient on Saturday. Dressing to RT foot removed, surgical incision sites intact, no bleeding or drainage noted. Foot slightly swollen nothing severe. Patient seemed relieved after, MD was informed about foot's condition. Affected foot re-wrapped with clean DD & patient mike. well, no C/O pain. All needs attended well and met, routine rounds and frequent visual checks done.
--- NOTE | 2023-02-11 20:00 | NUR ---
NSG: Received patient sitting up in w/c out side of her room. alert and oriented x4. no c/o pain or discomfort at this time. continue plan of care.
[2023-02-11 20:24] VITALS: BP 139/93; TEMP 98.4; O2SAT 99
[2023-02-11] MEDS: ATORVASTATIN 10 MG TABLET PO SCH ×2 (20:48→21:00)
[2023-02-11] MEDS: LIDOCAINE 5% PATCH TD SCH (20:48)
--- NOTE | 2023-02-11 21:00 | NUR ---
NSG: PATIENT IS LYING IN BED COMFORTABLY. ROUTINE MEDS GIVEN. REFUSED LIPITOR PO. CONTINUE MONITORING FOR SAFETY. CALL LIGHT W/IN REACH.
[2023-02-11] MEDS: MELATONIN 3 MG TABLET PO PRN (22:50)
--- NOTE | 2023-02-11 22:50 | NUR ---
nsg:Patient c/o insomnia. melatonin 6 mg po prn given for sleep. continue plan of care.
[2023-02-12] MEDS: ACETAMINOPHEN 325 MG TABLET PO PRN ×2 (00:50→20:44)
--- NOTE | 2023-02-12 00:50 | NUR ---
NSG: Patient c/o headache. tylenol 650 mg po given per patient requested.
--- NOTE | 2023-02-12 04:49 | NUR ---
NSG; Remain calm and cooperative. no c/o pain or discomfort at this time. v/s wnl. resting in bed comfortably. call light w/in reach.
[2023-02-12 07:45] VITALS: BP 122/84; TEMP 98; O2SAT 99
[2023-02-12] MEDS: ZINC SULFATE 220 MG CAPSULE PO SCH (09:12)
[2023-02-12] MEDS: CHOLECALCIFEROL 1,000 UNIT TABLET PO SCH (09:12)
[2023-02-12] MEDS: DOCUSATE SODIUM 100 MG CAPSULE PO SCH ×2 (09:12→21:00)
[2023-02-12] MEDS: AMLODIPINE 5 MG TABLET PO SCH ×2 (09:12→20:44)
[2023-02-12] MEDS: ASCORBIC ACID 500 MG TABLET PO SCH (09:12)
[2023-02-12] MEDS: ENOXAPARIN SODIUM 40 MG/0.4 ML DISP.SYRIN SQ SCH (09:27)
[2023-02-12 15:49] VITALS: BP 104/62; TEMP 98.6; O2SAT 99
[2023-02-12 20:00] VITALS: BP 111/70; TEMP 98.5; O2SAT 96
[2023-02-12] MEDS: MELATONIN 3 MG TABLET PO PRN (20:44)
[2023-02-12] MEDS: LIDOCAINE 5% PATCH TD SCH (20:44)
[2023-02-12] MEDS: ATORVASTATIN 10 MG TABLET PO SCH (21:00)
--- NOTE | 2023-02-13 05:25 | NUR ---
AAOx4 Ambulates with walker upon initial rounds. Tolerated all po meds well.Kept comfortable. All due meds given. Will monitor patient. Medicated with tylenol as needed. Says she doesnt need any narcotic, she's ok with the tylenol.
[2023-02-13 07:25] LABS: HEMATOCRIT 36.4 % (31.2-41.9); MEAN CORPUSCULAR HEMOGLOBIN 31.8 uug (24.7-32.8); MEAN CORPUSCULAR VOLUME 94.6 fL (75.5-95.3); PLATELET COUNT (AUTO) 413 K/uL (179-408)
[2023-02-13 07:55] LABS: BILIRUBIN,TOTAL 0.1 mg/dL (0.2-1.0); CREATININE 0.6 mg/dL (0.6-1.3); MAGNESIUM 2.2 mg/dL (1.8-2.4); POTASSIUM 4.2 mmol/L (3.5-5.1); TOTAL PROTEIN, SERUM 7.5 g/dL (6.4-8.2)
[2023-02-13] MEDS: CHOLECALCIFEROL 1,000 UNIT TABLET PO SCH (08:39)
[2023-02-13] MEDS: ZINC SULFATE 220 MG CAPSULE PO SCH (08:39)
[2023-02-13] MEDS: ASCORBIC ACID 500 MG TABLET PO SCH (08:39)
[2023-02-13] MEDS: AMLODIPINE 5 MG TABLET PO SCH ×2 (08:48→20:27)
[2023-02-13] MEDS: DOCUSATE SODIUM 100 MG CAPSULE PO SCH ×2 (08:48→20:33)
[2023-02-13] MEDS: ENOXAPARIN SODIUM 40 MG/0.4 ML DISP.SYRIN SQ SCH (08:51)
--- NOTE | 2023-02-13 13:17 | NUR ---
INTERDISCIPLINARY TEAM CONFERENCE
--- NOTE | 2023-02-13 15:19 | NUR ---
42 year old female. Dx: S/P hardware removal. She is alert and oriented x4, verbally responsive with no complaint of pain. She did states, that she couldn't sleep last night. Melatonin given last night. Patient denies pain when asked. She is comfortable. Normal air movement noted. Respiration unlabored. Oxygen saturation in the high 90's. She refused to take [place] but wants the Tylenol instead. Last BM today. All needs met. Will continue to monitor patient same treatment plan.
[2023-02-13 16:00] VITALS: BP 113/74; TEMP 98.6; O2SAT 99
[2023-02-13 20:00] VITALS: BP 122/82; TEMP 98.1; O2SAT 98
[2023-02-13] MEDS: MELATONIN 3 MG TABLET PO PRN (20:27)
[2023-02-13] MEDS: ACETAMINOPHEN 325 MG TABLET PO PRN (20:27)
[2023-02-13] MEDS: ATORVASTATIN 10 MG TABLET PO SCH (20:33)
[2023-02-13] MEDS: LIDOCAINE 5% PATCH TD SCH (20:34)
--- NOTE | 2023-02-14 06:46 | NUR ---
Condition unchanged. AAOx4 All needs attended. All due meds given without difficulty. VSS. Denies any pain nor any discomfort.Will monitor patient.
[2023-02-14 07:49] VITALS: BP 127/78; TEMP 98.2; O2SAT 99
[2023-02-14] MEDS: ASCORBIC ACID 500 MG TABLET PO SCH (08:57)
[2023-02-14] MEDS: DOCUSATE SODIUM 100 MG CAPSULE PO SCH ×3 (08:57→21:00)
[2023-02-14] MEDS: ZINC SULFATE 220 MG CAPSULE PO SCH (08:57)
[2023-02-14] MEDS: CHOLECALCIFEROL 1,000 UNIT TABLET PO SCH (08:57)
[2023-02-14] MEDS: ENOXAPARIN SODIUM 40 MG/0.4 ML DISP.SYRIN SQ SCH (08:58)
[2023-02-14] MEDS: AMLODIPINE 5 MG TABLET PO SCH ×2 (09:09→21:03)
[2023-02-14 16:49] VITALS: BP 112/82; TEMP 98.2; O2SAT 97
[2023-02-14 20:00] VITALS: BP 116/72; TEMP 98; O2SAT 97
[2023-02-14] MEDS: ATORVASTATIN 10 MG TABLET PO SCH ×2 (21:00→21:03)
[2023-02-14] MEDS: LIDOCAINE 5% PATCH TD SCH (21:00)
[2023-02-14] MEDS: ACETAMINOPHEN 325 MG TABLET PO PRN (21:01)
[2023-02-14] MEDS: MELATONIN 3 MG TABLET PO PRN (21:06)
[2023-02-15 07:48] VITALS: BP 113/78; TEMP 98.5; O2SAT 98
[2023-02-15] MEDS: ASCORBIC ACID 500 MG TABLET PO SCH (08:07)
[2023-02-15] MEDS: CHOLECALCIFEROL 1,000 UNIT TABLET PO SCH (08:07)
[2023-02-15] MEDS: ZINC SULFATE 220 MG CAPSULE PO SCH (08:07)
[2023-02-15] MEDS: AMLODIPINE 5 MG TABLET PO SCH ×2 (08:08→20:49)
[2023-02-15] MEDS: ENOXAPARIN SODIUM 40 MG/0.4 ML DISP.SYRIN SQ SCH (08:08)
[2023-02-15] MEDS: DOCUSATE SODIUM 100 MG CAPSULE PO SCH ×2 (08:11→21:00)
--- NOTE | 2023-02-15 19:51 | NUR ---
NSG: Received patient lying in bed in her room. alert and oriented x4. no c/o pain or discomfort at this time. call light w/in reach.continue plan of care.
[2023-02-15] MEDS: MELATONIN 3 MG TABLET PO PRN (20:51)
[2023-02-15] MEDS: ATORVASTATIN 10 MG TABLET PO SCH (21:00)
[2023-02-15] MEDS: LIDOCAINE 5% PATCH TD SCH (21:00)
--- NOTE | 2023-02-16 06:02 | NUR ---
NSG: Remain calm and cooperative. denies pain or discomfort at this time. call light w/in reach.
--- NOTE | 2023-02-16 07:10 | NUR ---
pt received in bed sleeping , vs are stable no c/o pain noted at this time ,bed in low position we will continue to monitors family at bed side sleeping
[2023-02-16] MEDS: ZINC SULFATE 220 MG CAPSULE PO SCH (08:03)
[2023-02-16] MEDS: ASCORBIC ACID 500 MG TABLET PO SCH (08:03)
[2023-02-16] MEDS: CHOLECALCIFEROL 1,000 UNIT TABLET PO SCH (08:03)
[2023-02-16] MEDS: DOCUSATE SODIUM 100 MG CAPSULE PO SCH ×2 (08:04→21:00)
[2023-02-16] MEDS: AMLODIPINE 5 MG TABLET PO SCH ×2 (08:04→21:19)
[2023-02-16] MEDS: ENOXAPARIN SODIUM 40 MG/0.4 ML DISP.SYRIN SQ SCH (08:04)
[2023-02-16 08:10] VITALS: BP 120/81; TEMP 98; O2SAT 98
--- NOTE | 2023-02-16 15:20 | NUR ---
WORK WITH PT ,RESTING IN HER ROOM NO C/O PAIN NOTED ,FAMILY AT BED SIDE
[2023-02-16] MEDS: ATORVASTATIN 10 MG TABLET PO SCH (21:00)
[2023-02-16] MEDS: LIDOCAINE 5% PATCH TD SCH (21:00)
[2023-02-16] MEDS: MELATONIN 3 MG TABLET PO PRN (21:18)
[2023-02-16] MEDS: ACETAMINOPHEN 325 MG TABLET PO PRN (21:19)
[2023-02-16 22:40] VITALS: BP 131/90; TEMP 98.2; O2SAT 98
[2023-02-17 08:00] VITALS: BP 119/82; TEMP 98.3; O2SAT 98
[2023-02-17] MEDS: ZINC SULFATE 220 MG CAPSULE PO SCH (08:01)
[2023-02-17] MEDS: CHOLECALCIFEROL 1,000 UNIT TABLET PO SCH (08:01)
[2023-02-17] MEDS: ASCORBIC ACID 500 MG TABLET PO SCH (08:01)
[2023-02-17] MEDS: AMLODIPINE 5 MG TABLET PO SCH ×2 (08:02→20:31)
[2023-02-17] MEDS: DOCUSATE SODIUM 100 MG CAPSULE PO SCH ×2 (08:02→20:31)
[2023-02-17] MEDS: ENOXAPARIN SODIUM 40 MG/0.4 ML DISP.SYRIN SQ SCH (08:02)
[2023-02-17] MEDS ORDERED: MAG HYDROX/AL HYDROX/SIMETH 30 ML LIQUID UDC PO PRN (12:30)
[2023-02-17 20:11] VITALS: BP 124/89; TEMP 98; O2SAT 98
[2023-02-17] MEDS: MELATONIN 3 MG TABLET PO PRN (20:31)
[2023-02-17] MEDS: ATORVASTATIN 10 MG TABLET PO SCH (20:31)
[2023-02-17] MEDS: LIDOCAINE 5% PATCH TD SCH (20:31)
--- NOTE | 2023-02-18 07:00 | NUR ---
pt received in bed awake, vs are stable no c/o pain noted at this time ,bed in low position we will continue to monitors family at bed side sleeping
[2023-02-18 07:46] VITALS: BP 114/81; TEMP 97.9; O2SAT 97
[2023-02-18] MEDS: AMLODIPINE 5 MG TABLET PO SCH ×2 (08:07→20:12)
[2023-02-18] MEDS: CHOLECALCIFEROL 1,000 UNIT TABLET PO SCH (08:07)
[2023-02-18] MEDS: DOCUSATE SODIUM 100 MG CAPSULE PO SCH ×2 (08:07→20:11)
[2023-02-18] MEDS: ENOXAPARIN SODIUM 40 MG/0.4 ML DISP.SYRIN SQ SCH (08:07)
[2023-02-18] MEDS: ZINC SULFATE 220 MG CAPSULE PO SCH (08:07)
[2023-02-18] MEDS: ASCORBIC ACID 500 MG TABLET PO SCH (08:07)
--- NOTE | 2023-02-18 13:00 | NUR ---
pt walk with the pt in the hallway tolerated well
[2023-02-18 16:05] VITALS: BP 111/71; TEMP 98.1; O2SAT 97
[2023-02-18 20:07] VITALS: BP 129/83; TEMP 98; O2SAT 99
[2023-02-18] MEDS: ATORVASTATIN 10 MG TABLET PO SCH (20:11)
[2023-02-18] MEDS: MELATONIN 3 MG TABLET PO PRN (20:23)
[2023-02-18] MEDS: LIDOCAINE 5% PATCH TD SCH (20:23)
--- NOTE | 2023-02-19 01:22 | NUR ---
pt is sleeping comfortably at this time
--- NOTE | 2023-02-19 04:23 | NUR ---
NSG; Remain calm and cooperative. no c/o pain or discomfort at this time. v/s wnl. resting in bed comfortably. call light w/in reach.
[2023-02-19 08:00] VITALS: BP 107/72; TEMP 97.8; O2SAT 98
[2023-02-19] MEDS: DOCUSATE SODIUM 100 MG CAPSULE PO SCH ×2 (09:00→21:00)
[2023-02-19] MEDS: ZINC SULFATE 220 MG CAPSULE PO SCH (09:01)
[2023-02-19] MEDS: CHOLECALCIFEROL 1,000 UNIT TABLET PO SCH (09:01)
[2023-02-19] MEDS: ASCORBIC ACID 500 MG TABLET PO SCH (09:01)
[2023-02-19] MEDS: AMLODIPINE 5 MG TABLET PO SCH ×2 (09:02→21:15)
[2023-02-19] MEDS: ENOXAPARIN SODIUM 40 MG/0.4 ML DISP.SYRIN SQ SCH (09:03)
[2023-02-19 16:00] VITALS: BP 107/72; TEMP 97.6; O2SAT 98
[2023-02-19 20:10] VITALS: BP 134/77; TEMP 98.5; O2SAT 97
[2023-02-19] MEDS: ATORVASTATIN 10 MG TABLET PO SCH (21:00)
[2023-02-19] MEDS: LIDOCAINE 5% PATCH TD SCH (21:00)
[2023-02-19] MEDS: MELATONIN 3 MG TABLET PO PRN (21:27)
--- NOTE | 2023-02-20 06:32 | NUR ---
RN NOTE/NOC - RECEIVED Pt in her room. Pt refused her lidocain patch, Lipitor and docusate at 2100. pt is calm and cooperative. Pt no c/o pain or discomfort at this time and rested in bed comfortably. call light were w/in reach.
[2023-02-20 07:45] VITALS: BP 117/82; TEMP 98.3; O2SAT 97
[2023-02-20] MEDS: AMLODIPINE 5 MG TABLET PO SCH ×2 (08:05→21:12)
[2023-02-20] MEDS: ZINC SULFATE 220 MG CAPSULE PO SCH (08:05)
[2023-02-20] MEDS: ASCORBIC ACID 500 MG TABLET PO SCH (08:05)
[2023-02-20] MEDS: CHOLECALCIFEROL 1,000 UNIT TABLET PO SCH (08:05)
[2023-02-20] MEDS: ENOXAPARIN SODIUM 40 MG/0.4 ML DISP.SYRIN SQ SCH (08:06)
[2023-02-20] MEDS: DOCUSATE SODIUM 100 MG CAPSULE PO SCH (08:06)
[2023-02-20 16:30] VITALS: BP 120/81; TEMP 98.7; O2SAT 99
[2023-02-20 20:15] VITALS: BP 125/85; TEMP 98.6; O2SAT 99
--- NOTE | 2023-02-20 20:30 | NUR ---
NSG: Received patient lying in bed in her room. alert and oriented x4. no c/o pain or discomfort at this time. refused call light w/in reach.continue plan of care.
[2023-02-20] MEDS: ATORVASTATIN 10 MG TABLET PO SCH (21:00)
[2023-02-20] MEDS: MELATONIN 3 MG TABLET PO PRN (21:13)
--- NOTE | 2023-02-21 05:59 | NUR ---
NSG; Remain calm and cooperative. no c/o pain or discomfort at this time. v/s wnl. resting in bed comfortably. call light w/in reach.
--- NOTE | 2023-02-21 07:49 | NUR ---
pt seen by medical
[2023-02-21 08:00] VITALS: BP 115/80; TEMP 98.4; O2SAT 99
[2023-02-21 08:05] VITALS: BP 115/80; TEMP 98.4; O2SAT 99
[2023-02-21] MEDS: ASCORBIC ACID 500 MG TABLET PO SCH (08:08)
[2023-02-21] MEDS: ZINC SULFATE 220 MG CAPSULE PO SCH (08:08)
[2023-02-21] MEDS: CHOLECALCIFEROL 1,000 UNIT TABLET PO SCH (08:08)
[2023-02-21] MEDS: AMLODIPINE 5 MG TABLET PO SCH ×2 (08:08→20:06)
[2023-02-21] MEDS: ENOXAPARIN SODIUM 40 MG/0.4 ML DISP.SYRIN SQ SCH (08:09)
--- NOTE | 2023-02-21 10:12 | NUR ---
pt went to her dr appointment via ambulances in stable condition
--- NOTE | 2023-02-21 11:24 | NUR ---
pt received back from appointment in stable condition
[2023-02-21 15:53] VITALS: BP 108/75; TEMP 98.3; O2SAT 99
[2023-02-21] MEDS: MELATONIN 3 MG TABLET PO PRN (20:06)
[2023-02-21] MEDS: ATORVASTATIN 10 MG TABLET PO SCH (20:07)
[2023-02-21 20:30] VITALS: BP 127/90; TEMP 98.6; O2SAT 99
--- NOTE | 2023-02-21 21:00 | NUR ---
PATIENT IS LYING IN BED COMFORTABLY. ROUTINE MEDS GIVEN. REFUSED LIPITOR PO. CONTINUE MONITORING FOR SAFETY. CALL LIGHT W/IN REACH.
--- NOTE | 2023-02-22 04:50 | NUR ---
Patient slept well throughout the night, no acute distress noted. Needs assessed and attended family at bed side
[2023-02-22 07:58] VITALS: BP 121/78; TEMP 98.5; O2SAT 98
[2023-02-22] MEDS: ZINC SULFATE 220 MG CAPSULE PO SCH (08:02)
[2023-02-22] MEDS: ASCORBIC ACID 500 MG TABLET PO SCH (08:03)
[2023-02-22] MEDS: CHOLECALCIFEROL 1,000 UNIT TABLET PO SCH (08:03)
[2023-02-22] MEDS: AMLODIPINE 5 MG TABLET PO SCH ×2 (08:03→20:20)
[2023-02-22] MEDS: ENOXAPARIN SODIUM 40 MG/0.4 ML DISP.SYRIN SQ SCH (08:10)
[2023-02-22] MEDS: ATORVASTATIN 10 MG TABLET PO SCH (20:21)
[2023-02-22 20:28] VITALS: BP 127/81; TEMP 98.2; O2SAT 99
[2023-02-22] MEDS: MELATONIN 3 MG TABLET PO PRN (20:32)
[2023-02-23 07:56] VITALS: BP 125/80; TEMP 98.3; O2SAT 98
[2023-02-23] MEDS: AMLODIPINE 5 MG TABLET PO SCH ×2 (08:00→20:35)
[2023-02-23] MEDS: ASCORBIC ACID 500 MG TABLET PO SCH (08:00)
[2023-02-23] MEDS: ZINC SULFATE 220 MG CAPSULE PO SCH (08:00)
[2023-02-23] MEDS: CHOLECALCIFEROL 1,000 UNIT TABLET PO SCH (08:00)
[2023-02-23] MEDS: ENOXAPARIN SODIUM 40 MG/0.4 ML DISP.SYRIN SQ SCH (08:07)
--- NOTE | 2023-02-23 11:08 | NUR ---
patient is alert, oriented x4, no sob, respirations are even nonlabored, skin warm and dry to touch, right foot dressing intact, rewrapped ambrocio wrap, foot still noted with edema, no drainage noted on the dressing, patient is able to move her toes, pink in color, capillary refill is less than 3 seconds. patient is able to do her adls herself, fall risks instructions reinforced, patient verbalized understanding of it. Encouraged to use call light when needs assistance for safety precautions, patient verbalized understanding of it. continue with current plan of care.
--- NOTE | 2023-02-23 12:05 | NUR ---
patient stated she is too bored, she wanted to go out. this designer/writer called doctor Valencia and Dr Valencia okayed for patient to go out of pass. patient went out of pass with her ta friend. safety precautions reviewed with patient and with patient friend. both verbalized understanding of it.
--- NOTE | 2023-02-23 18:43 | NUR ---
patient is back from out of pass, no distress noted.
[2023-02-23 20:00] VITALS: BP 118/78; TEMP 98.3; O2SAT 98
[2023-02-23] MEDS: ATORVASTATIN 10 MG TABLET PO SCH (20:26)
--- NOTE | 2023-02-24 08:00 | NUR ---
Received patient in bed sitting, awake, alert and oriented x 4. No complain, no SOB, no signs of distress. Vital signs taken and recorded. Medications given and recorded Seen and examined by Dr. Chandler Seen by physical therapist Observed accordingly, needs attended
[2023-02-24] MEDS: ASCORBIC ACID 500 MG TABLET PO SCH (08:59)
[2023-02-24] MEDS: ZINC SULFATE 220 MG CAPSULE PO SCH (08:59)
[2023-02-24] MEDS: AMLODIPINE 5 MG TABLET PO SCH ×2 (09:00→20:49)
[2023-02-24] MEDS: CHOLECALCIFEROL 1,000 UNIT TABLET PO SCH (09:00)
[2023-02-24] MEDS: ENOXAPARIN SODIUM 40 MG/0.4 ML DISP.SYRIN SQ SCH (09:01)
[2023-02-24 16:25] VITALS: BP 111/74; TEMP 98.4; O2SAT 100
[2023-02-24 20:00] VITALS: BP 118/78; TEMP 98.9; O2SAT 99
[2023-02-24] MEDS: MELATONIN 3 MG TABLET PO PRN (20:48)
[2023-02-24] MEDS: ATORVASTATIN 10 MG TABLET PO SCH (20:49)
[2023-02-25 07:47] VITALS: BP 110/82; TEMP 97.9; O2SAT 97
[2023-02-25] MEDS: ASCORBIC ACID 500 MG TABLET PO SCH (09:04)
[2023-02-25] MEDS: CHOLECALCIFEROL 1,000 UNIT TABLET PO SCH (09:04)
[2023-02-25] MEDS: ZINC SULFATE 220 MG CAPSULE PO SCH (09:04)
[2023-02-25] MEDS: ENOXAPARIN SODIUM 40 MG/0.4 ML DISP.SYRIN SQ SCH (09:06)
[2023-02-25] MEDS: AMLODIPINE 5 MG TABLET PO SCH ×2 (09:07→20:20)
--- NOTE | 2023-02-25 13:25 | NUR ---
Received patient in bed awake, alert and oriented. No complain at this time, no signs of distress Vital signs taken and recorded. Due medications given Needs attended
[2023-02-25 16:51] VITALS: BP 116/83; TEMP 98.6; O2SAT 98
[2023-02-25 20:00] VITALS: BP 113/77; TEMP 98.8; O2SAT 99
[2023-02-25] MEDS: ATORVASTATIN 10 MG TABLET PO SCH (20:10)
[2023-02-25] MEDS: MELATONIN 3 MG TABLET PO PRN (20:21)
[2023-02-26 07:59] VITALS: BP 107/78; TEMP 98.3; O2SAT 97
[2023-02-26] MEDS: CHOLECALCIFEROL 1,000 UNIT TABLET PO SCH (08:56)
[2023-02-26] MEDS: ASCORBIC ACID 500 MG TABLET PO SCH (08:56)
[2023-02-26] MEDS: ZINC SULFATE 220 MG CAPSULE PO SCH (08:56)
[2023-02-26] MEDS: ENOXAPARIN SODIUM 40 MG/0.4 ML DISP.SYRIN SQ SCH (08:57)
[2023-02-26] MEDS: AMLODIPINE 5 MG TABLET PO SCH ×2 (09:08→20:21)
[2023-02-26 15:58] VITALS: BP 116/77; TEMP 98.5; O2SAT 98
[2023-02-26 19:52] VITALS: BP 119/80; TEMP 97.3
[2023-02-26] MEDS: MELATONIN 3 MG TABLET PO PRN (20:21)
[2023-02-26] MEDS: ATORVASTATIN 10 MG TABLET PO SCH (20:43)
[2023-02-27 04:00] VITALS: BP 115/75; TEMP 97.8
[2023-02-27 08:00] VITALS: BP 114/85; TEMP 98.4; O2SAT 97
[2023-02-27] MEDS: AMLODIPINE 5 MG TABLET PO SCH ×2 (08:34→20:30)
[2023-02-27] MEDS: CHOLECALCIFEROL 1,000 UNIT TABLET PO SCH (08:35)
[2023-02-27] MEDS: ZINC SULFATE 220 MG CAPSULE PO SCH (08:35)
[2023-02-27] MEDS: ASCORBIC ACID 500 MG TABLET PO SCH (08:35)
[2023-02-27] MEDS: ENOXAPARIN SODIUM 40 MG/0.4 ML DISP.SYRIN SQ SCH (08:37)
--- NOTE | 2023-02-27 10:45 | NUR ---
INTERDISCIPLINARY TEAM CONFERENCE
--- NOTE | 2023-02-27 11:41 | NUR ---
Received patient in bed awake, alert and oriented. No complain at this time, no signs of distress Vital signs taken and recorded. Due medications given Seen by physical therapist Needs attended
[2023-02-27 15:16] VITALS: BP 115/79; TEMP 98.4; O2SAT 99
[2023-02-27 20:00] VITALS: BP 116/80; TEMP 98.3; O2SAT 99
[2023-02-27] MEDS: MELATONIN 3 MG TABLET PO PRN (20:30)
[2023-02-27] MEDS: ATORVASTATIN 10 MG TABLET PO SCH (20:30)
[2023-02-28 07:46] VITALS: BP 122/83; TEMP 98.6; O2SAT 98
[2023-02-28] MEDS: ENOXAPARIN SODIUM 40 MG/0.4 ML DISP.SYRIN SQ SCH (08:04)
[2023-02-28] MEDS: CHOLECALCIFEROL 1,000 UNIT TABLET PO SCH (08:04)
[2023-02-28] MEDS: ASCORBIC ACID 500 MG TABLET PO SCH (08:04)
[2023-02-28] MEDS: ZINC SULFATE 220 MG CAPSULE PO SCH (08:04)
[2023-02-28] MEDS: AMLODIPINE 5 MG TABLET PO SCH ×2 (08:04→21:04)
[2023-02-28 15:52] VITALS: BP 116/80; TEMP 98.4; O2SAT 99
[2023-02-28] MEDS: MELATONIN 3 MG TABLET PO PRN (21:04)
[2023-02-28] MEDS: ATORVASTATIN 10 MG TABLET PO SCH (21:06)
[2023-02-28 21:17] VITALS: BP 133/78; TEMP 98.2; O2SAT 100
--- NOTE | 2023-03-01 00:46 | NUR ---
NSG: Patient resting in bed comfortably. no c/o pain or discomfort at this time. call light w/in reach.
[2023-03-01 05:31] VITALS: BP 130/75; TEMP 97.8; O2SAT 100
--- NOTE | 2023-03-01 06:45 | NUR ---
NSG; Remain calm and cooperative. no c/o pain or discomfort at this time. v/s wnl. resting in bed comfortably. call light w/in reach.
[2023-03-01 08:04] VITALS: BP 115/83; TEMP 98.4; O2SAT 97
[2023-03-01] MEDS: ZINC SULFATE 220 MG CAPSULE PO SCH (08:39)
[2023-03-01] MEDS: CHOLECALCIFEROL 1,000 UNIT TABLET PO SCH (08:39)
[2023-03-01] MEDS: ASCORBIC ACID 500 MG TABLET PO SCH (08:39)
[2023-03-01] MEDS: AMLODIPINE 5 MG TABLET PO SCH ×2 (08:43→20:41)
[2023-03-01] MEDS: ENOXAPARIN SODIUM 40 MG/0.4 ML DISP.SYRIN SQ SCH (08:47)
--- NOTE | 2023-03-01 14:58 | NUR ---
pt's came back from orthopedics to see Dr. De La Cruz to check her tibia fibula surgery, Doctor said she can put weight bearing as tolerated. Pt's oriented, I spoke also to XENIA Kramer he will be here on saturday to remove her suture.
--- NOTE | 2023-03-01 18:11 | NUR ---
Patient's ta friend is with patient most of the time, and patient shares her three meals with patient's ta friend. educations provided to patient that nurses need to know true amount of meals patient ate. educations provided to patient that she needs proper nutrition for her bone healing, and need to eat good. patient stated she has good appetite and verbalized understanding of eating health foods. education provided about heart healthy diet, patient verbalized understanding of it.
[2023-03-01 20:09] VITALS: BP 114/79; TEMP 98.1; O2SAT 98
[2023-03-01] MEDS: MELATONIN 3 MG TABLET PO PRN (20:43)
[2023-03-01] MEDS: ATORVASTATIN 10 MG TABLET PO SCH (20:45)
--- NOTE | 2023-03-02 05:17 | NUR ---
NSG; Remain calm and cooperative. no c/o pain or discomfort at this time. v/s wnl. resting in bed comfortably. call light w/in reach.
[2023-03-02] MEDS: AMLODIPINE 5 MG TABLET PO SCH ×2 (08:16→21:07)
[2023-03-02] MEDS: CHOLECALCIFEROL 1,000 UNIT TABLET PO SCH (08:16)
[2023-03-02] MEDS: ZINC SULFATE 220 MG CAPSULE PO SCH (08:16)
[2023-03-02] MEDS: ENOXAPARIN SODIUM 40 MG/0.4 ML DISP.SYRIN SQ SCH (08:17)
[2023-03-02] MEDS: ASCORBIC ACID 500 MG TABLET PO SCH (08:17)
[2023-03-02] MEDS: ACETAMINOPHEN 325 MG TABLET PO PRN (08:45)
[2023-03-02 17:50] VITALS: BP 116/69; TEMP 98; O2SAT 99
[2023-03-02 20:00] VITALS: BP 108/72; TEMP 98.1; O2SAT 99
[2023-03-02] MEDS: MELATONIN 3 MG TABLET PO PRN (21:07)
[2023-03-02] MEDS: ATORVASTATIN 10 MG TABLET PO SCH (21:08)
[2023-03-03] MEDS: ZINC SULFATE 220 MG CAPSULE PO SCH (08:37)
[2023-03-03] MEDS: ASCORBIC ACID 500 MG TABLET PO SCH (08:37)
[2023-03-03] MEDS: CHOLECALCIFEROL 1,000 UNIT TABLET PO SCH (08:38)
[2023-03-03] MEDS: ENOXAPARIN SODIUM 40 MG/0.4 ML DISP.SYRIN SQ SCH (08:39)
[2023-03-03] MEDS: AMLODIPINE 5 MG TABLET PO SCH (08:45)
--- NOTE | 2023-03-03 10:08 | NUR ---
0730-REC'D PATIENT IN BED, AWAKE, AOx4, VERBALIZES NEEDS AND FOLLOWS DIRECTIONS. NO SS OF RESPIRATORY DISTRESS NOTED. PATIENT DENIES PAIN, NO MOANING OR FACIAL GRIMACES NOTED. PATIENT APPEARS COMFORTABLY. SAFETY MEASURES IN PLACE & CALL LIGHT AT REACH. BED SIDE TABLE WITH NEEDED ITEMS IN PLACE AND AT REACH. 0900-SCHEDULED MEDICATIONS ADMINISTERED ORDERED, NO ASE NOTED, PATIENT REFUSED LOVENOX (BLOOD THINNER MEDICATION) RISKS VS BENEFITS EXPLAINED WITH GOOD VERBAL UNDERSTANDING DEMONSTRATION. WISHES AND CHOICES RESPECTED. MD AWARE/CHARGE NURSE AWARE OF LOVENOX REFUSAL.
[2023-03-03 16:05] VITALS: BP 125/82; TEMP 98.3; O2SAT 97
--- NOTE | 2023-03-03 19:30 | NUR ---
Received patient sitting in bed. AAOx4. In no acute distress. Denies any pain or SOB. VS WNL. Needs assessed and attended to. Safety measure initiated and call light within reached.
[2023-03-03 20:00] VITALS: BP 124/82; TEMP 98; O2SAT 98
--- NOTE | 2023-03-03 20:09 | NUR ---
Placed a 1 time order for Norvasc per pharmacist/Cata recommendation as day shift RN had an error on using the 2100 dose as non-administer.
[2023-03-03] MEDS: ATORVASTATIN 10 MG TABLET PO SCH (20:16)
[2023-03-03] MEDS: MELATONIN 3 MG TABLET PO PRN (20:16)
[2023-03-03] MEDS ORDERED: AMLODIPINE 5 MG TABLET PO ONE (21:00)
--- NOTE | 2023-03-04 05:08 | NUR ---
Slept throughout the night. No complain of pain or SOB.
--- NOTE | 2023-03-04 07:53 | NUR ---
Rec'd patient in bed, awake, alert, verbalizes her needs; No physical or respiratory distress noted. RT foot stitches removed, surgical site no s/s of bleeding/infection noted, no c/o pain; patient will be DC home today. Call light within reach.
[2023-03-04 08:01] VITALS: BP 120/84; TEMP 98.4; O2SAT 97
[2023-03-04 08:56] VITALS: BP 120/84
[2023-03-04] MEDS: ZINC SULFATE 220 MG CAPSULE PO SCH (08:56)
[2023-03-04] MEDS: ASCORBIC ACID 500 MG TABLET PO SCH (08:56)
[2023-03-04] MEDS: CHOLECALCIFEROL 1,000 UNIT TABLET PO SCH (08:56)
[2023-03-04] MEDS: AMLODIPINE 5 MG TABLET PO SCH (08:56)
--- NOTE | 2023-03-04 11:59 | NUR ---
PATIENT READY TO BE DC HOME TODAY, AWAITING FOR HER CIRCUS ARTIST. PATIENT IS IN BASELINE STABLE CONDITIONS. PICTURES TO RT FOOT SURGICAL WOUND/SCARING AREAS UPDATED. VSS, NO SS OF HYPO/HTN NOTED.
--- NOTE | 2023-03-04 13:37 | NUR ---
1300-Patient ate her lunch and mike. well. No c/o GI discomfort. Continues to wait for her ride/diamond picker. DC paper work given, information for Dr. Tre Brewer, Jorge Cassidy, tel. & address provided.
--- NOTE | 2023-03-04 16:31 | NUR ---
1515-Patient was picked up at this time. Exited building cheerful, in stable conditions. No c/o aileen. VSS. All belongings/medication list/teaching material provided. Exited building safely.
== END 2023-03-04 15:08 | disposition home health service (06) | DRG 560 ==
PROVIDERS: ADMIT Physical Medicine & Rehabilitation Pain Medicine; ATTEND Physical Medicine & Rehabilitation Pain Medicine
DX: S92.351D Displaced fracture of fifth metatarsal bone, right foot, subsequent encounter for fracture with routine healing (principal); D68.59 Other primary thrombophilia; S92.331D Displaced fracture of third metatarsal bone, right foot, subsequent encounter for fracture with routine healing; S12.9XXD Fracture of neck, unspecified, subsequent encounter; V89.2XXD Person injured in unspecified motor-vehicle accident, traffic, subsequent encounter; D64.9 Anemia, unspecified; E78.5 Hyperlipidemia, unspecified; I10 Essential (primary) hypertension; S92.352D Displaced fracture of fifth metatarsal bone, left foot, subsequent encounter for fracture with routine healing; S22.49XD Multiple fractures of ribs, unspecified side, subsequent encounter for fracture with routine healing; S27.0XXD Traumatic pneumothorax, subsequent encounter; F32.A Depression, unspecified; F41.9 Anxiety disorder, unspecified; S02.2XXD Fracture of nasal bones, subsequent encounter for fracture with routine healing; S82.201D Unspecified fracture of shaft of right tibia, subsequent encounter for closed fracture with routine healing; S82.401D Unspecified fracture of shaft of right fibula, subsequent encounter for closed fracture with routine healing; S52.125D Nondisplaced fracture of head of left radius, subsequent encounter for closed fracture with routine healing; R74.01 Elevation of levels of liver transaminase levels; G47.00 Insomnia, unspecified
CPT/HCPCS: 36415; 73590; 73630; 83735; 84100; 85025; 97535-GO-CO; A4663; J1650

== ENCOUNTER 2025-07-29 20:22 | Emergency (ER) | payer BC, OTHER ==
[~2025-07-29] VITALS: Ht 154.9 cm; Wt 64.9 kg
[~2025-07-29 20:22] MED LIST changes: -AMLO5TAB4 PO; +AMLO5TAB6 PO; +CHOL100062 PO; -METH57CR22 TP; +OXYC10TA59 PO
[2025-07-29 20:32] VITALS: BP 141/103
[2025-07-29 23:08] VITALS: BP 138/82; TEMP 98.1; O2SAT 98
== END 2025-07-29 23:09 | disposition home or self-care (01) ==
LOC: ER 20:26
DX: R07.9 Chest pain, unspecified (principal); R05.9 Cough, unspecified; J40 Bronchitis, not specified as acute or chronic; J02.9 Acute pharyngitis, unspecified; R20.2 Paresthesia of skin; Z88.7 Allergy status to serum and vaccine; Z20.822 Contact with and (suspected) exposure to COVID-19
CPT/HCPCS: 36415; 71045; 84484; A4606; A4663